=== PATIENT | female | born 1950 | race African-American/Black ===

== ENCOUNTER 2019-01-12 15:22 | Inpatient (IN) | payer MEDICARE, MEDICAID ==
[~2019-01-12] VITALS: Ht 154.9 cm; Wt 76.2 kg
[~2019-01-12 15:22] MED LIST: ALBU6.7H INH; ASPI-1159 MT; ATROV INH; GABA-531 MT; LIP40 MT; METF-414 MT
[2019-01-12 17:01] LABS: CHLORIDE 105 mEq/L (98-107)
[2019-01-12 17:06] LABS: BASOPHILS % 0.4 % (0.0-2.0); EOSINOPHILS % 1.4 % (0.0-5.0); HEMATOCRIT. 38.2 % (36.0-48.0); HEMOGLOBIN. 12.8 g/dL (12.0-16.0); LYMPHOCYTES % 20.6 % (20.0-50.0); MEAN CORPUSCULAR HEMOGLOBIN 30.4 pg (28.0-32.0); MEAN CORPUSCULAR VOLUME 90.5 fL (81.0-99.0); MEAN PLATELET VOLUME 8.9 fl (7.4-10.4); MONOCYTES % 5.4 % (2.0-8.0); NEUTROPHILS % 72.2 % (40.0-76.0); PLATELET 268 x1000/uL (130-400); RED BLOOD CELL COUNT 4.22 mill/uL (4.2-5.4); RED CELL DISTRIBUTION WIDTH 13.7 % (11.6-14.6)
[2019-01-12] MEDS ORDERED: IPRATROPIUM BROMIDE (0.02%) 0.5MG/2.5ML NEB HHN STA (17:08)
[2019-01-12] MEDS ORDERED: METHYLPREDNISOLONE SOD SUCC 125 MG/2 ML VIAL IV STA (17:08)
[2019-01-12] MEDS ORDERED: SODIUM CHLORIDE 0.9% 1,000 ML IV ONE (17:08)
[2019-01-12] MEDS ORDERED: ALBUTEROL (0.083%) 2.5MG/3ML NEB HHN STA (17:08)
[2019-01-12 17:11] LABS: INR 1.1; PARTIAL THROMBOPLASTIN TIME 28.6 sec (23.4-31.0); PROTHROMBIN TIME 10.7 sec (9.1-11.1)
[2019-01-12] MEDS ORDERED: ASPIRIN 325MG EC TABLET PO ONE (18:30)
[2019-01-12 23:56] VITALS: BP 132/59
[2019-01-13] VITALS: BP 132/59
[2019-01-13] MEDS ORDERED: DEXTROSE 50% WATER 50ML SYRINGE IV PRN (01:00)
[2019-01-13] MEDS ORDERED: ALBUTEROL (0.083%) 2.5MG/3ML NEB HHN SCH (01:00)
[2019-01-13] MEDS: METHYLPREDNISOLONE SOD SUCC 40 MG/ML VIAL IV SCH ×2 (03:05→09:36)
[2019-01-13 04:00] VITALS: BP 152/74
[2019-01-13] MEDS ORDERED: IPRATROPIUM BROMIDE (0.02%) 0.5MG/2.5ML NEB HHN SCH (04:00)
[2019-01-13] MEDS ORDERED: GUAIFENESIN 200MG/10ML SUGAR FREE UDC PO PRN (06:00)
[2019-01-13] MEDS: BLOOD SUGAR DIAGNOSTIC STRIP TEST SCH ×4 (06:52→21:01)
[2019-01-13] MEDS: INSULIN LISPRO 100 UNITS/ML SUBCUT SCH ×4 (06:59→21:21)
[2019-01-13] MEDS ORDERED: ACETAMINOPHEN 325MG TABLET PO PRN (07:45)
[2019-01-13] MEDS ORDERED: GUAIFENESIN-DM 200MG-20MG/10ML UDC PO PRN (07:45)
[2019-01-13] MEDS ORDERED: LORAZEPAM 0.5MG TABLET PO PRN (07:45)
[2019-01-13] MEDS ORDERED: HYDROCODONE/ACETAMINOPHEN 5/325MG TABLET PO PRN (07:45)
[2019-01-13] MEDS ORDERED: PNEUMOCOCCAL 23-VAL P-SAC VAC 0.5 ML IM ONE (08:00)
[2019-01-13] MEDS: IPRATROPIUM/ALBUTEROL 0.5-3(2.5)MG/3ML NEB HHN SCH ×4 (08:05→20:50)
[2019-01-13] MEDS ORDERED: ATORVASTATIN CALCIUM 40MG TABLET PO SCH (09:00)
[2019-01-13] MEDS ORDERED: NON FORMULARY PATIENT HOME MED PO SCH (09:00)
[2019-01-13] MEDS: ASPIRIN 81MG TABLET PO SCH (09:36)
[2019-01-13 09:43] VITALS: BP 155/71
[2019-01-13] MEDS ORDERED: INFLUENZA VIRUS VACCINE(AFLURIA) 0.5ML SYR IM ONE (10:00)
[2019-01-13] MEDS ORDERED: LEVOFLOXACIN 500MG TABLET PO NR ×2 (11:00)
[2019-01-13 12:00] VITALS: BP_SYST 131; BP_SYST 144; BP_DIAS 61; BP_DIAS 68
[2019-01-13 16:00] VITALS: BP 144/68
[2019-01-13] MEDS ORDERED: METFORMIN HCL 500MG TABLET PO SCH (17:40)
[2019-01-13 20:00] VITALS: BP 157/85
[2019-01-13] MEDS: ATORVASTATIN CALCIUM 40MG TABLET PO SCH (21:16)
[2019-01-13] MEDS: INSULIN GLARGINE UD 100 UNITS/ML SYR SUBCUT SCH (21:22)
[2019-01-14] VITALS: BP 166/64
[2019-01-14] MEDS: CLONIDINE 0.1MG TABLET PO PRN (01:22)
[2019-01-14 04:00] VITALS: BP 137/58
[2019-01-14] MEDS: BLOOD SUGAR DIAGNOSTIC STRIP TEST SCH ×4 (06:16→21:00)
[2019-01-14] MEDS: INSULIN LISPRO 100 UNITS/ML SUBCUT SCH ×4 (06:16→22:08)
[2019-01-14 07:04] LABS: BASOPHILS % 0.1 % (0.0-2.0); HEMATOCRIT. 36.1 % (36.0-48.0); HEMOGLOBIN. 12.2 g/dL (12.0-16.0); LYMPHOCYTES % 10.3 % (20.0-50.0); MEAN CORPUSCULAR HEMOGLOBIN 30.4 pg (28.0-32.0); MEAN CORPUSCULAR VOLUME 89.8 fL (81.0-99.0); MEAN PLATELET VOLUME 9.5 fl (7.4-10.4); MONOCYTES % 5.3 % (2.0-8.0); NEUTROPHILS % 84.3 % (40.0-76.0); PLATELET 258 x1000/uL (130-400); RED BLOOD CELL COUNT 4.02 mill/uL (4.2-5.4); RED CELL DISTRIBUTION WIDTH 13.7 % (11.6-14.6)
[2019-01-14 08:00] VITALS: BP 158/79
[2019-01-14] MEDS: ASPIRIN 81MG TABLET PO SCH (08:10)
[2019-01-14] MEDS: PREDNISONE 20MG TABLET PO SCH (08:10)
[2019-01-14] MEDS: IPRATROPIUM/ALBUTEROL 0.5-3(2.5)MG/3ML NEB HHN SCH ×5 (08:22→23:56)
[2019-01-14] MEDS: INSULIN GLARGINE UD 100 UNITS/ML SYR SUBCUT SCH ×2 (10:19→22:08)
[2019-01-14] MEDS ORDERED: LEVOFLOXACIN 250MG TABLET PO SCH ×2 (11:00)
[2019-01-14 16:00] VITALS: BP 114/63
[2019-01-14 19:35] LABS: CLARITY URINE CLEAR (CLEAR); COLOR URINE ORANGE (YELLOW); KETONES URINE NEGATIVE (NEGATIVE); LEUKOCYTE ESTERASE URINE NEGATIVE (NEGATIVE); NITRITE URINE NEGATIVE (NEGATIVE); OCCULT BLOOD URINE NEGATIVE (NEGATIVE); PH URINE 5.5 (4.5-8.0); PROTEIN URINE NEGATIVE (NEGATIVE); SPECIFIC GRAVITY URINE 1.014 (1.005-1.030); UROBILINOGEN URINE 0.2 E.U./dL (0.2-1.0)
[2019-01-14 20:00] VITALS: BP 156/70
[2019-01-14] MEDS: ATORVASTATIN CALCIUM 40MG TABLET PO SCH (21:51)
[2019-01-14 23:11] LABS: *AMPHETAMINES SCREEN URINE NEGATIVE (NEGATIVE); *BARBITURATES SCREEN URINE NEGATIVE (NEGATIVE); *BENZODIAZEPINES SCREEN URINE PRESUMTIVE POSITIVE (NEGATIVE)
[2019-01-14 23:12] LABS: *COCAINE SCREEN URINE NEGATIVE (NEGATIVE); CANNABINOID URINE SCREEN NEGATIVE (NEGATIVE); METHADONE URINE SCREEN NEGATIVE (NEGATIVE); OPIATES URINE SCREEN NEGATIVE (NEGATIVE); PHENCYCLIDINE URINE SCREEN NEGATIVE (NEGATIVE)
[2019-01-15] VITALS: BP 139/54
[2019-01-15 04:00] VITALS: BP 138/76
[2019-01-15] MEDS: IPRATROPIUM/ALBUTEROL 0.5-3(2.5)MG/3ML NEB HHN SCH ×3 (04:53→12:28)
[2019-01-15] MEDS: BLOOD SUGAR DIAGNOSTIC STRIP TEST SCH ×2 (06:33→11:38)
[2019-01-15] MEDS: INSULIN LISPRO 100 UNITS/ML SUBCUT SCH ×2 (06:54→12:46)
[2019-01-15 08:00] VITALS: BP 189/88
[2019-01-15 08:01] LABS: CHLORIDE 106 mEq/L (98-107)
[2019-01-15 08:06] LABS: PHOSPHORUS 2.5 mg/dL (2.5-4.9)
[2019-01-15] MEDS: ASPIRIN 81MG TABLET PO SCH (08:34)
[2019-01-15] MEDS: PREDNISONE 20MG TABLET PO SCH (08:34)
[2019-01-15] MEDS: CLONIDINE 0.1MG TABLET PO PRN (08:35)
[2019-01-15 10:03] LABS: BASOPHILS % 0.3 % (0.0-2.0); EOSINOPHILS % 1.5 % (0.0-5.0); HEMATOCRIT. 34.7 % (36.0-48.0); HEMOGLOBIN. 11.5 g/dL (12.0-16.0); LYMPHOCYTES % 32.4 % (20.0-50.0); MEAN CORPUSCULAR HEMOGLOBIN 29.9 pg (28.0-32.0); MEAN CORPUSCULAR VOLUME 90.3 fL (81.0-99.0); MONOCYTES % 6.2 % (2.0-8.0); NEUTROPHILS % 59.6 % (40.0-76.0); PLATELET 233 x1000/uL (130-400); RED BLOOD CELL COUNT 3.84 mill/uL (4.2-5.4); RED CELL DISTRIBUTION WIDTH 13.6 % (11.6-14.6)
[2019-01-15] MEDS: INSULIN GLARGINE UD 100 UNITS/ML SYR SUBCUT SCH (10:17)
[2019-01-15 12:00] VITALS: BP 138/57
[2019-01-15] MEDS ORDERED: MAGNESIUM OXIDE 400MG TABLET PO SCH (13:30)
== END 2019-01-15 18:55 | disposition home or self-care (01) | DRG 682 ==
LOC: ER 15:22 → 8WST 18:59 → ENRESERV 22:52
PROVIDERS: ADMIT Internal Medicine; ATTEND Internal Medicine
DX: N17.9 Acute kidney failure, unspecified (principal); J96.00 Acute respiratory failure, unspecified whether with hypoxia or hypercapnia; J44.1 Chronic obstructive pulmonary disease with (acute) exacerbation; I69.354 Hemiplegia and hemiparesis following cerebral infarction affecting left non-dominant side; F17.210 Nicotine dependence, cigarettes, uncomplicated; I25.10 Atherosclerotic heart disease of native coronary artery without angina pectoris; J06.9 Acute upper respiratory infection, unspecified; I10 Essential (primary) hypertension; E11.65 Type 2 diabetes mellitus with hyperglycemia; E78.5 Hyperlipidemia, unspecified; Z79.84 Long term (current) use of oral hypoglycemic drugs; Z82.49 Family history of ischemic heart disease and other diseases of the circulatory system; Z83.3 Family history of diabetes mellitus; Z95.5 Presence of coronary angioplasty implant and graft
CPT/HCPCS: 36415; 71045; 76770; 80048; 80061; 80305; 82962; 83036; 83735; 83880; 84100; 84484; 87804; 93005; 93970; 94640; 94644; 96374; 96375; 99285; J1815; J2920; J2930; J7030; J7512; J7611; J7620

== ENCOUNTER 2019-07-28 18:12 | Inpatient (IN) | payer MEDICARE, OTHER ==
[~2019-07-28] VITALS: Ht 154.9 cm; Wt 75.3 kg
[~2019-07-28 18:12] MED LIST changes: -ASPI-1159 MT; -LIP40 MT
[2019-07-28] MEDS ORDERED: PIPERACILLIN/TAZ 3.375G PREMIX 50 ML IV ONE (18:30)
[2019-07-28] MEDS ORDERED: SODIUM CHLORIDE 0.9% 1000ML BAG (SEPSIS BOLUS) IV ONE (18:30)
[2019-07-28] MEDS ORDERED: VANCOMYCIN 1 G PREMIX 200 ML IV ONE (18:30)
[2019-07-28 18:53] LABS: BASOPHILS % 0.5 % (0.0-2.0); EOSINOPHILS % 1.6 % (0.0-5.0); HEMATOCRIT. 36.6 % (36.0-48.0); HEMOGLOBIN. 12.2 g/dL (12.0-16.0); LYMPHOCYTES % 53.2 % (20.0-50.0); MEAN CORPUSCULAR HEMOGLOBIN 30.3 pg (28.0-32.0); MEAN CORPUSCULAR VOLUME 90.6 fL (81.0-99.0); MEAN PLATELET VOLUME 8.2 fl (7.4-10.4); MONOCYTES % 7.7 % (2.0-8.0); PLATELET 283 x1000/uL (130-400); RED BLOOD CELL COUNT 4.04 mill/uL (4.2-5.4); RED CELL DISTRIBUTION WIDTH 14.6 % (11.6-14.6)
[2019-07-28 19:01] LABS: CHLORIDE 105 mEq/L (98-107)
[2019-07-28 19:03] LABS: PARTIAL THROMBOPLASTIN TIME 24.3 sec (23.4-31.0); PROTHROMBIN TIME 10.6 sec (9.6-11.0)
[2019-07-28 19:05] LABS: ETHANOL BLOOD < 10 mg/dL
[2019-07-28] MEDS ORDERED: POTASSIUM CHLORIDE 20MEQ TABLET SR PO ONE (20:00)
[2019-07-28] MEDS ORDERED: ASPIRIN 325MG EC TABLET PO ONE (20:00)
[2019-07-28 20:10] LABS: CLARITY URINE CLEAR (CLEAR); COLOR URINE YELLOW (YELLOW); KETONES URINE NEGATIVE (NEGATIVE); LEUKOCYTE ESTERASE URINE 2+ (NEGATIVE); NITRITE URINE NEGATIVE (NEGATIVE); OCCULT BLOOD URINE NEGATIVE (NEGATIVE); PH URINE 6.5 (4.5-8.0); PROTEIN URINE NEGATIVE (NEGATIVE); SPECIFIC GRAVITY URINE 1.007 (1.005-1.030); UROBILINOGEN URINE 0.2 E.U./dL (0.2-1.0)
[2019-07-28 20:28] LABS: *AMPHETAMINES SCREEN URINE NEGATIVE (NEGATIVE); CANNABINOID URINE SCREEN PRESUMTIVE POSITIVE (NEGATIVE)
[2019-07-28 20:29] LABS: *BARBITURATES SCREEN URINE NEGATIVE (NEGATIVE); *BENZODIAZEPINES SCREEN URINE NEGATIVE (NEGATIVE); *COCAINE SCREEN URINE NEGATIVE (NEGATIVE); METHADONE URINE SCREEN NEGATIVE (NEGATIVE); OPIATES URINE SCREEN NEGATIVE (NEGATIVE); PHENCYCLIDINE URINE SCREEN NEGATIVE (NEGATIVE)
[2019-07-29] VITALS (8 sets, daily range): BP systolic 144–155; BP diastolic 66–98
[2019-07-29] MEDS ORDERED: HYDRALAZINE HCL 100MG TABLET PO SCH (14:00)
[2019-07-29] MEDS: LOSARTAN POTASSIUM 50 MG TABLET PO SCH (15:21)
[2019-07-29] MEDS: AMLODIPINE 10MG TABLET PO SCH (15:21)
[2019-07-29] MEDS ORDERED: DEXTROSE 50% WATER 50ML SYRINGE IV PRN (16:45)
[2019-07-29] MEDS ORDERED: GUAIFENESIN 200MG/10ML SUGAR FREE UDC PO PRN (16:45)
[2019-07-29] MEDS ORDERED: ACETAMINOPHEN 325MG TABLET PO PRN (16:45)
[2019-07-29] MEDS ORDERED: ONDANSETRON HCL 4MG/2ML INJ IV PRN (16:45)
[2019-07-29] MEDS ORDERED: MAGNESIUM/ALUMINUM HYDROXIDE/SIMETHICONE 30ML UDC PO PRN (16:45)
[2019-07-29] MEDS ORDERED: POTASSIUM CHLORIDE 20MEQ TABLET SR PO NR (17:00)
[2019-07-29] MEDS: INSULIN LISPRO 100 UNITS/ML SUBCUT SCH ×2 (17:20→21:00)
[2019-07-29] MEDS: METFORMIN HCL 500MG TABLET PO SCH (17:34)
[2019-07-29] MEDS: BLOOD SUGAR DIAGNOSTIC STRIP TEST SCH ×2 (17:34→21:11)
[2019-07-29] MEDS: ENOXAPARIN 40MG/0.4ML SYR SUBCUT SCH (17:35)
[2019-07-29] MEDS: GABAPENTIN 300MG CAPSULE PO SCH (21:10)
[2019-07-29] MEDS: SODIUM CHLORIDE 0.9% INJ 3ML FLUSH IVF SCH (21:11)
[2019-07-30] VITALS (13 sets, daily range): BP systolic 103–165; BP diastolic 50–84
[2019-07-30 06:21] LABS: BASOPHILS % 0.7 % (0.0-2.0); EOSINOPHILS % 2.2 % (0.0-5.0); HEMOGLOBIN. 11.7 g/dL (12.0-16.0); LYMPHOCYTES % 39.4 % (20.0-50.0); MEAN CORPUSCULAR HEMOGLOBIN 30.5 pg (28.0-32.0); MEAN CORPUSCULAR VOLUME 91.5 fL (81.0-99.0); MEAN PLATELET VOLUME 8.1 fl (7.4-10.4); MONOCYTES % 8.7 % (2.0-8.0); PLATELET 237 x1000/uL (130-400); RED BLOOD CELL COUNT 3.83 mill/uL (4.2-5.4); RED CELL DISTRIBUTION WIDTH 14.5 % (11.6-14.6)
[2019-07-30] MEDS: SODIUM CHLORIDE 0.9% INJ 3ML FLUSH IVF SCH ×3 (06:38→21:45)
[2019-07-30] MEDS: BLOOD SUGAR DIAGNOSTIC STRIP TEST SCH ×4 (06:50→21:45)
[2019-07-30 06:55] LABS: CHLORIDE 110 mEq/L (98-107)
[2019-07-30 07:16] LABS: PHOSPHORUS 3.3 mg/dL (2.5-4.9)
[2019-07-30] MEDS: INSULIN LISPRO 100 UNITS/ML SUBCUT SCH ×4 (07:20→21:00)
[2019-07-30] MEDS: LOSARTAN POTASSIUM 50 MG TABLET PO SCH (08:09)
[2019-07-30] MEDS: METFORMIN HCL 500MG TABLET PO SCH ×2 (08:10→17:04)
[2019-07-30] MEDS: AMLODIPINE 10MG TABLET PO SCH (08:10)
[2019-07-30] MEDS: ASPIRIN 81MG EC TABLET PO SCH (08:10)
[2019-07-30] MEDS: ENOXAPARIN 40MG/0.4ML SYR SUBCUT SCH (17:05)
[2019-07-30] MEDS: GABAPENTIN 300MG CAPSULE PO SCH (21:44)
[2019-07-31] VITALS (9 sets, daily range): BP systolic 102–168; BP diastolic 54–110
[2019-07-31] MEDS ORDERED: CLONIDINE 0.1MG TABLET PO PRN (00:15)
[2019-07-31] MEDS: SODIUM CHLORIDE 0.9% INJ 3ML FLUSH IVF SCH ×2 (06:33→14:00)
[2019-07-31] MEDS: BLOOD SUGAR DIAGNOSTIC STRIP TEST SCH ×3 (06:46→16:50)
[2019-07-31] MEDS: INSULIN LISPRO 100 UNITS/ML SUBCUT SCH ×3 (07:20→17:20)
[2019-07-31] MEDS: LOSARTAN POTASSIUM 50 MG TABLET PO SCH (08:51)
[2019-07-31] MEDS: METFORMIN HCL 500MG TABLET PO SCH ×2 (08:51→18:41)
[2019-07-31] MEDS: ASPIRIN 81MG EC TABLET PO SCH (08:52)
[2019-07-31] MEDS: AMLODIPINE 10MG TABLET PO SCH (08:52)
[2019-07-31] MEDS: ENOXAPARIN 40MG/0.4ML SYR SUBCUT SCH (18:46)
== END 2019-07-31 18:50 | disposition home or self-care (01) | DRG 74 ==
LOC: ER 18:12 → 3WST 21:03 → EDBEDREQ 21:07 → ENRESERV 07-29 10:03 → 3WST 07-29 11:28
PROVIDERS: ADMIT Internal Medicine; ATTEND Internal Medicine
DX: G90.8 Other disorders of autonomic nervous system (principal); I69.354 Hemiplegia and hemiparesis following cerebral infarction affecting left non-dominant side; E11.40 Type 2 diabetes mellitus with diabetic neuropathy, unspecified; I50.9 Heart failure, unspecified; I11.0 Hypertensive heart disease with heart failure; J44.9 Chronic obstructive pulmonary disease, unspecified; Z87.891 Personal history of nicotine dependence; Z79.84 Long term (current) use of oral hypoglycemic drugs; Z79.899 Other long term (current) drug therapy
CPT/HCPCS: 36415; 71045; 80048; 80305; 80320; 81003; 82962; 83605; 83735; 83880; 84100; 84145; 84484; 93005; 93970; 97162; 99285; J1650; J2543; J3370; J7030; A4315; G0480

== ENCOUNTER 2019-10-14 14:19 | Emergency (ER) | payer MEDICARE, OTHER ==
[~2019-10-14] VITALS: Ht 152.4 cm; Wt 60.0 kg
[2019-10-14 21:33] LABS: BASOPHILS % 0.9 % (0.0-2.0); EOSINOPHILS % 2.1 % (0.0-5.0); HEMATOCRIT. 38.8 % (36.0-48.0); MEAN CORPUSCULAR HEMOGLOBIN 30.3 pg (28.0-32.0); MEAN CORPUSCULAR VOLUME 90.5 fL (81.0-99.0); MEAN PLATELET VOLUME 8.3 fl (7.4-10.4); MONOCYTES % 6.8 % (2.0-8.0); NEUTROPHILS % 58.2 % (40.0-76.0); PLATELET 281 x1000/uL (130-400); RED BLOOD CELL COUNT 4.29 mill/uL (4.2-5.4); RED CELL DISTRIBUTION WIDTH 13.5 % (11.6-14.6)
[2019-10-14] MEDS ORDERED: MAGNESIUM 2 G PREMIX 50 ML IV STA (21:47)
[2019-10-14] MEDS ORDERED: PREDNISONE 20MG TABLET PO STA (21:47)
[2019-10-14] MEDS ORDERED: ALBUTEROL (0.083%) 2.5MG/3ML NEB HHN STA (21:47)
[2019-10-14] MEDS ORDERED: ALBUTEROL (0.5%) 2.5MG/0.5ML NEB HHN ONE (21:59)
[2019-10-14 22:38] LABS: CHLORIDE 111 mEq/L (98-107)
[2019-10-14 23:39] VITALS: BP 145/57
== END 2019-10-14 23:41 | disposition home or self-care (01) ==
LOC: ER 14:19 → EDBD 14:19 → ER 23:41
DX: J44.1 Chronic obstructive pulmonary disease with (acute) exacerbation (principal); R07.89 Other chest pain; E11.9 Type 2 diabetes mellitus without complications; I10 Essential (primary) hypertension; Z86.73 Personal history of transient ischemic attack (TIA), and cerebral infarction without residual deficits; Z79.84 Long term (current) use of oral hypoglycemic drugs
CPT/HCPCS: 36415; 71045; 80053; 83880; 84484; 85025; 93005; 94640; 96365; 96366; 99284; J3475; J7512; J7611; Z7610

== ENCOUNTER 2020-05-14 13:11 | Inpatient (IN) | payer MEDICARE, OTHER ==
[~2020-05-14] VITALS: Ht 165.1 cm; Wt 71.2 kg
[~2020-05-14 13:11] MED LIST changes: -ALBU6.7H INH; +ALBU6.7H11 INH
[2020-05-14] MEDS ORDERED: SODIUM CHLORIDE 0.9% 500 ML IV ONE (13:34)
[2020-05-14] MEDS ORDERED: ACETAMINOPHEN 325MG TABLET PO ONE (14:00)
[2020-05-14 14:07] LABS: BASOPHILS % 0.9 % (0.0-2.0); HEMATOCRIT. 36.3 % (36.0-48.0); HEMOGLOBIN. 12.5 g/dL (12.0-16.0); MEAN CORPUSCULAR HEMOGLOBIN 31.4 pg (28.0-32.0); MEAN CORPUSCULAR VOLUME 91.1 fL (81.0-99.0); MONOCYTES % 7.3 % (2.0-8.0); NEUTROPHILS % 53.8 % (40.0-76.0); PLATELET 241 x1000/uL (130-400); RED BLOOD CELL COUNT 3.98 mill/uL (4.2-5.4); RED CELL DISTRIBUTION WIDTH 14.2 % (11.6-14.6)
[2020-05-14 14:10] LABS: CHLORIDE 110 mEq/L (98-107)
[2020-05-14] MEDS ORDERED: ZOLPIDEM TARTRATE 5MG TABLET PO PRN (21:45)
[2020-05-14] MEDS ORDERED: ACETAMINOPHEN 325MG TABLET PO PRN ×2 (21:45)
[2020-05-14] MEDS ORDERED: DEXTROSE 50% WATER 50ML SYRINGE IV PRN (21:45)
[2020-05-14] MEDS ORDERED: DIPHENHYDRAMINE 50MG/ML VIAL IV PRN (21:45)
[2020-05-14] MEDS ORDERED: MAGNESIUM/ALUMINUM HYDROXIDE/SIMETHICONE 30ML UDC PO PRN (21:45)
[2020-05-14] MEDS ORDERED: ONDANSETRON HCL 4MG/2ML INJ IV PRN (21:45)
[2020-05-14] MEDS: SODIUM CHLORIDE 0.9% INJ 3ML FLUSH IVF SCH (22:33)
[2020-05-14 22:45] LABS: CLARITY URINE CLEAR (CLEAR); COLOR URINE YELLOW (YELLOW); KETONES URINE NEGATIVE (NEGATIVE); LEUKOCYTE ESTERASE URINE 1+ (NEGATIVE); NITRITE URINE NEGATIVE (NEGATIVE); OCCULT BLOOD URINE NEGATIVE (NEGATIVE); PROTEIN URINE NEGATIVE (NEGATIVE); SPECIFIC GRAVITY URINE 1.013 (1.005-1.030)
[2020-05-14 23:40] VITALS: BP 148/58
[2020-05-15] VITALS (7 sets, daily range): BP systolic 140–170; BP diastolic 49–74
[2020-05-15] MEDS ORDERED: METF-414 MT (00:16)
[2020-05-15] MEDS ORDERED: CLON0.1T PO (00:17)
[2020-05-15] MEDS: BLOOD SUGAR DIAGNOSTIC STRIP TEST SCH ×4 (06:02→21:00)
[2020-05-15] MEDS: INSULIN LISPRO 100 UNITS/ML SUBCUT SCH ×4 (06:19→21:00)
[2020-05-15] MEDS: SODIUM CHLORIDE 0.9% INJ 3ML FLUSH IVF SCH ×3 (06:26→22:36)
[2020-05-15] MEDS: ENOXAPARIN 40MG/0.4ML SYR SUBCUT SCH (08:21)
[2020-05-15] MEDS: LOSARTAN POTASSIUM 25 MG TABLET PO SCH ×2 (12:37→20:52)
[2020-05-15] MEDS: ASPIRIN 81MG EC TABLET PO SCH (12:37)
[2020-05-15] MEDS: FAMOTIDINE 20MG TABLET PO SCH (20:51)
[2020-05-15] MEDS: AMLODIPINE 5MG TABLET PO SCH (20:52)
[2020-05-16] VITALS: BP_SYST 180; BP_SYST 196; BP_SYST 204; BP_DIAS 72; BP_DIAS 78; BP_DIAS 81
[2020-05-16 04:00] VITALS: BP 185/66
[2020-05-16] MEDS: SODIUM CHLORIDE 0.9% INJ 3ML FLUSH IVF SCH ×3 (05:52→21:21)
[2020-05-16] MEDS: BLOOD SUGAR DIAGNOSTIC STRIP TEST SCH ×4 (06:24→21:21)
[2020-05-16] MEDS: INSULIN LISPRO 100 UNITS/ML SUBCUT SCH ×4 (06:29→21:00)
[2020-05-16 07:16] LABS: BASOPHILS % 0.8 % (0.0-2.0); EOSINOPHILS % 1.6 % (0.0-5.0); HEMOGLOBIN. 14.2 g/dL (12.0-16.0); LYMPHOCYTES % 38.2 % (20.0-50.0); MEAN CORPUSCULAR HEMOGLOBIN 30.9 pg (28.0-32.0); MEAN CORPUSCULAR VOLUME 89.6 fL (81.0-99.0); MONOCYTES % 7.9 % (2.0-8.0); NEUTROPHILS % 51.5 % (40.0-76.0); PLATELET 251 x1000/uL (130-400); RED BLOOD CELL COUNT 4.58 mill/uL (4.2-5.4); RED CELL DISTRIBUTION WIDTH 14.2 % (11.6-14.6)
[2020-05-16 07:23] LABS: CHLORIDE 105 mEq/L (98-107)
[2020-05-16 07:34] LABS: TOTAL IRON BINDING CAPACITY 311 ug/dL (250-450)
[2020-05-16 07:35] LABS: LDL CHOLESTEROL 143 mg/dL (5-100)
[2020-05-16 07:37] LABS: HDL CHOLESTEROL 56 mg/dL (40-59)
[2020-05-16 07:41] LABS: VITAMIN B12 SERUM 652 pg/mL (211-911)
[2020-05-16] MEDS: ASPIRIN 81MG EC TABLET PO SCH (09:08)
[2020-05-16] MEDS: ENOXAPARIN 40MG/0.4ML SYR SUBCUT SCH (09:08)
[2020-05-16] MEDS: AMLODIPINE 5MG TABLET PO SCH ×2 (09:09→21:20)
[2020-05-16] MEDS: LOSARTAN POTASSIUM 25 MG TABLET PO SCH (09:09)
[2020-05-16] MEDS: METFORMIN HCL 500MG TABLET PO SCH (17:12)
[2020-05-16 20:00] VITALS: BP 201/97
[2020-05-16] MEDS ORDERED: GABAPENTIN 300MG CAPSULE PO SCH (21:00)
[2020-05-16] MEDS: FAMOTIDINE 20MG TABLET PO SCH (21:00)
[2020-05-16] MEDS ORDERED: ATORVASTATIN CALCIUM 40MG TABLET PO SCH (21:00)
[2020-05-16] MEDS: LOSARTAN POTASSIUM 50 MG TABLET PO SCH (21:20)
[2020-05-16] MEDS: CLONIDINE 0.1MG TABLET PO SCH (22:02)
[2020-05-16 22:03] VITALS: BP 155/54
[2020-05-17] VITALS (8 sets, daily range): BP systolic 105–194; BP diastolic 46–89
[2020-05-17] MEDS: CLONIDINE 0.1MG TABLET PO SCH ×2 (06:00→13:45)
[2020-05-17] MEDS: SODIUM CHLORIDE 0.9% INJ 3ML FLUSH IVF SCH (06:26)
[2020-05-17] MEDS: BLOOD SUGAR DIAGNOSTIC STRIP TEST SCH ×2 (06:26→12:09)
[2020-05-17] MEDS: METFORMIN HCL 500MG TABLET PO SCH (06:42)
[2020-05-17] MEDS: INSULIN LISPRO 100 UNITS/ML SUBCUT SCH ×2 (06:45→12:19)
[2020-05-17] MEDS: ASPIRIN 81MG EC TABLET PO SCH (09:31)
[2020-05-17] MEDS: ENOXAPARIN 40MG/0.4ML SYR SUBCUT SCH (09:31)
[2020-05-17] MEDS: AMLODIPINE 5MG TABLET PO SCH (09:31)
[2020-05-17] MEDS: LOSARTAN POTASSIUM 50 MG TABLET PO SCH (09:31)
== END 2020-05-17 17:35 | disposition home health service (06) | DRG 74 ==
LOC: ER 13:47 → 8WST 15:21 → EDBEDREQ 15:24 → ENRESERV 22:02
PROVIDERS: ADMIT Internal Medicine; ATTEND Internal Medicine
DX: G90.8 Other disorders of autonomic nervous system (principal); I69.354 Hemiplegia and hemiparesis following cerebral infarction affecting left non-dominant side; R55 Syncope and collapse; I95.9 Hypotension, unspecified; M19.90 Unspecified osteoarthritis, unspecified site; R00.1 Bradycardia, unspecified; I10 Essential (primary) hypertension; J44.9 Chronic obstructive pulmonary disease, unspecified; E11.40 Type 2 diabetes mellitus with diabetic neuropathy, unspecified; R03.0 Elevated blood-pressure reading, without diagnosis of hypertension; Z79.84 Long term (current) use of oral hypoglycemic drugs; Z79.899 Other long term (current) drug therapy
CPT/HCPCS: 36415; 71045; 73521; 73562; 78582; 80048; 80053; 80061; 81003; 82607; 82962; 83540; 83550; 83735; 83880; 84443; 84484; 85025; 93005; 93306; 93880; 93970; 99285; A9558; J1650; J1815; J7040

== ENCOUNTER 2020-09-27 15:31 | Emergency (ER) | payer MEDICARE, OTHER ==
[~2020-09-27] VITALS: Ht 167.6 cm; Wt 59.0 kg
[~2020-09-27 15:31] MED LIST changes: +CLON0.1T PO
[2020-09-27 17:26] LABS: BASOPHILS % 0.8 % (0.0-2.0); EOSINOPHILS % 0.4 % (0.0-5.0); HEMATOCRIT. 41.2 % (36.0-48.0); HEMOGLOBIN. 13.9 g/dL (12.0-16.0); LYMPHOCYTES % 16.8 % (20.0-50.0); MEAN CORPUSCULAR VOLUME 91.7 fL (81.0-99.0); MONOCYTES % 3.8 % (2.0-8.0); NEUTROPHILS % 78.2 % (40.0-76.0); PLATELET 276 x1000/uL (130-400); RED BLOOD CELL COUNT 4.49 mill/uL (4.2-5.4); RED CELL DISTRIBUTION WIDTH 14.8 % (11.6-14.6)
[2020-09-27 17:34] LABS: CHLORIDE 107 mEq/L (98-107)
[2020-09-27] MEDS ORDERED: CEFTRIAXONE 1 G PREMIX 50 ML IV ONE (17:45)
[2020-09-27] MEDS ORDERED: AZITHROMYCIN 500 MG in DEXT 5% WATER 250 ML IV ONE (17:45)
[2020-09-27 23:49] VITALS: BP 126/54
== END 2020-09-27 23:59 | disposition short-term general hospital (02) ==
LOC: ER 15:42 → CANBEDREQ 09-28 05:54
DX: R55 Syncope and collapse (principal); J18.9 Pneumonia, unspecified organism; R51.9 Headache, unspecified; J44.9 Chronic obstructive pulmonary disease, unspecified; E11.9 Type 2 diabetes mellitus without complications; I10 Essential (primary) hypertension; Z86.73 Personal history of transient ischemic attack (TIA), and cerebral infarction without residual deficits; Z98.891 History of uterine scar from previous surgery; Z79.899 Other long term (current) drug therapy
CPT/HCPCS: 36415; 70450; 71045; 72125; 80053; 84484; 85025; 87040; 93005; 96365; 96375; 99285; J0456; J0696; J7060

== ENCOUNTER 2024-03-28 13:34 | Inpatient (IN) | payer MEDICARE, MEDICAID ==
[~2024-03-28] VITALS: Ht 154.9 cm; Wt 81.3 kg
[~2024-03-28 13:34] MED LIST changes: -ALBU6.7H11 INH; +ALBU6.7H15 INH; -GABA-531 MT; +GABA-532 MT
[2024-03-28] MEDS ORDERED: CLONIDINE 0.2MG TABLET PO ONE (14:30)
[2024-03-28] MEDS ORDERED: NITROGLYCERIN 0.4MG TABLET SL SL PRN (14:30)
[2024-03-28] MEDS: ASPIRIN 81MG TABLET PO ONE (14:56)
[2024-03-28] MEDS: CLONIDINE 0.1MG TABLET PO NR (14:56)
[2024-03-28] MEDS: SODIUM CHLORIDE 0.9% 1,000 ML IV ONE (14:57)
[2024-03-28 15:13] LABS: BASOPHILS % 0.9 % (0.0-2.0); EOSINOPHILS % 0.9 % (0.0-5.0); HEMATOCRIT. 37.7 % (36.0-48.0); HEMOGLOBIN. 12.7 g/dL (12.0-16.0); LYMPHOCYTES % 17.8 % (20.0-50.0); MEAN CORPUSCULAR HEMOGLOBIN 30.7 pg (28.0-32.0); MEAN CORPUSCULAR HGB CONC 33.8 g/dL (31.0-37.0); MEAN CORPUSCULAR VOLUME 90.7 fL (81.0-99.0); MEAN PLATELET VOLUME 9.2 fl (7.4-10.4); MONOCYTES % 6.1 % (2.0-8.0); NEUTROPHILS % 74.3 % (40.0-76.0); PLATELET 230 x1000/uL (130-400); RED BLOOD CELL COUNT 4.15 mill/uL (4.2-5.4); RED CELL DISTRIBUTION WIDTH 13.8 % (11.6-14.6); WHITE BLOOD COUNT 7.8 x1000/uL (4.5-11.0)
[2024-03-28 15:17] LABS: CHLORIDE 105 mEq/L (98-107); POTASSIUM 3.6 mEq/L (3.5-5.1); SODIUM 140 mEq/L (136-145)
[2024-03-28 15:18] LABS: CALCIUM 9.7 mg/dL (8.7-10.4); CARBON DIOXIDE 32 mEq/L (21-32)
[2024-03-28 15:23] LABS: D-DIMER 1.67 mg/L FEU (<0.50); GLUCOSE 184 mg/dL (70-105); PARTIAL THROMBOPLASTIN TIME 25.9 sec (23.4-31.0); PROTHROMBIN TIME 10.9 sec (9.6-11.0); UREA NITROGEN BLOOD 17 mg/dL (9-23)
[2024-03-28 15:37] LABS: TROPONIN I HIGH SENSITIVITY 316 ng/L (3.0-34)
[2024-03-28] MEDS ORDERED: ENOXAPARIN 80MG/0.8ML SYR SUBCUT ONE (16:00)
[2024-03-28 17:38] LABS: TROPONIN I HIGH SENSITIVITY 378 ng/L (3.0-34)
[2024-03-28] MEDS: ENOXAPARIN 80MG/0.8ML SYR SUBCUT NR (18:25)
[2024-03-28] MEDS: SODIUM CHLORIDE 0.9% 1000ML BAG (SEPSIS BOLUS) IV ONE (19:20)
[2024-03-28] MEDS: CEFTRIAXONE 1GM/50ML 50 ML IV ONE (19:21)
[2024-03-28 20:15] VITALS: BP 167/68; PULSE 50; RESP 18; TEMP 98
[2024-03-28 20:18] VITALS: BP 137/66; PULSE 69; RESP 9; TEMP 98
[2024-03-28 22:00] VITALS: BP 137/65; PULSE 49; RESP 18
[2024-03-28] MEDS ORDERED: ZOLPIDEM TARTRATE 5MG TABLET PO PRN (23:15)
[2024-03-28] MEDS: FUROSEMIDE 40MG/4ML VIAL IVP SCH (23:56)
[2024-03-29] VITALS (12 sets, daily range): BP systolic 119–176; BP diastolic 50–112; PULSE 50–71; RESP 12–23; TEMP 97.3–99.4
[2024-03-29] MEDS: CLONIDINE 0.1MG TABLET PO PRN (05:47)
[2024-03-29 05:55] LABS: BASOPHILS % 0.7 % (0.0-2.0); EOSINOPHILS % 2.3 % (0.0-5.0); HEMOGLOBIN. 12.4 g/dL (12.0-16.0); LYMPHOCYTES % 33.5 % (20.0-50.0); MEAN CORPUSCULAR HEMOGLOBIN 30.7 pg (28.0-32.0); MEAN CORPUSCULAR HGB CONC 34.4 g/dL (31.0-37.0); MEAN CORPUSCULAR VOLUME 89.3 fL (81.0-99.0); MEAN PLATELET VOLUME 9.8 fl (7.4-10.4); MONOCYTES % 7.2 % (2.0-8.0); NEUTROPHILS % 56.3 % (40.0-76.0); PLATELET 210 x1000/uL (130-400); RED BLOOD CELL COUNT 4.03 mill/uL (4.2-5.4); RED CELL DISTRIBUTION WIDTH 13.6 % (11.6-14.6); WHITE BLOOD COUNT 7.3 x1000/uL (4.5-11.0)
[2024-03-29 06:19] LABS: CHLORIDE 106 mEq/L (98-107); POTASSIUM 3.3 mEq/L (3.5-5.1); SODIUM 140 mEq/L (136-145)
[2024-03-29 06:20] LABS: CALCIUM 9.5 mg/dL (8.7-10.4); CARBON DIOXIDE 29 mEq/L (21-32)
[2024-03-29 06:25] LABS: CREATINE KINASE MB FRACTION 2.2 ng/mL (0.5-3.6); GLUCOSE 162 mg/dL (70-105); TRIGLYCERIDE 118 mg/dL (0-150); UREA NITROGEN BLOOD 19 mg/dL (9-23)
[2024-03-29 06:26] LABS: LDL CHOLESTEROL 117 mg/dL (5-100)
[2024-03-29 06:27] LABS: CHOLESTEROL 168 mg/dL (<200); CREATINE KINASE 47 IU/L (34-145); HDL CHOLESTEROL 44 mg/dL (>65)
[2024-03-29] MEDS: BUDESONIDE 0.5MG/2ML NEB HHN SCH (08:18)
[2024-03-29] MEDS: ENOXAPARIN 40MG/0.4ML SYR SUBCUT SCH (08:25)
[2024-03-29 08:44] LABS: TROPONIN I HIGH SENSITIVITY 536 ng/L (3.0-34)
[2024-03-29] MEDS ORDERED: CARVEDILOL 6.25 MG TABLET PO SCH (11:00)
[2024-03-29] MEDS: ASPIRIN 81MG TABLET PO SCH (11:36)
[2024-03-29] MEDS: AMLODIPINE 5MG TABLET PO SCH (11:37)
[2024-03-29] MEDS: ISOSORBIDE MONONITRATE 30MG TABLET SR 24HR PO SCH (11:37)
[2024-03-29] MEDS: HYDRALAZINE HCL 25MG TABLET PO SCH (13:33)
[2024-03-29] MEDS: DOCUSATE SODIUM 100MG CAPSULE PO PRN (15:50)
[2024-03-29] MEDS: FAMOTIDINE 20MG/2ML VIAL IV NR (17:26)
[2024-03-29] MEDS: MONTELUKAST SODIUM 10MG TABLET PO SCH (17:26)
[2024-03-29 18:07] LABS: CREATINE KINASE MB FRACTION 1.1 ng/mL (0.5-3.6)
[2024-03-29] MEDS: ATORVASTATIN CALCIUM 40MG TABLET PO SCH (21:33)
[2024-03-29] MEDS ORDERED: DEXTROSE 50% WATER 50ML SYRINGE IV PRN (23:15)
[2024-03-30] VITALS (15 sets, daily range): BP systolic 126–187; BP diastolic 43–69; PULSE 53–94; RESP 15–25; TEMP 96.7–98.9; O2SAT 98–99
[2024-03-30] MEDS: BLOOD SUGAR DIAGNOSTIC STRIP TEST SCH (07:30)
[2024-03-30] MEDS: INSULIN LISPRO 100 UNITS/ML SUBCUT SCH (07:30)
[2024-03-30] MEDS ORDERED: INSULIN LISPRO 100 UNITS/ML SUBCUT SCH (08:00)
[2024-03-30] MEDS: IPRATROPIUM/ALBUTEROL 0.5-3(2.5)MG/3ML NEB HHN SCH (08:18)
[2024-03-30 08:54] LABS: *AMPHETAMINES SCREEN URINE NEGATIVE (NEGATIVE)
[2024-03-30 08:57] LABS: *BARBITURATES SCREEN URINE NEGATIVE (NEGATIVE); *BENZODIAZEPINES SCREEN URINE NEGATIVE (NEGATIVE); *COCAINE SCREEN URINE NEGATIVE (NEGATIVE); CANNABINOID URINE SCREEN NEGATIVE (NEGATIVE); METHADONE URINE SCREEN NEGATIVE (NEGATIVE); OPIATES URINE SCREEN NEGATIVE (NEGATIVE); PHENCYCLIDINE URINE SCREEN NEGATIVE (NEGATIVE)
[2024-03-30 08:58] LABS: ECSTASY MDMA SCREEN URINE NEGATIVE (NEGATIVE)
[2024-03-30] MEDS: LIDOCAINE 5% PATCH TOP SCH (18:09)
[2024-03-31] VITALS (15 sets, daily range): BP systolic 107–169; BP diastolic 49–98; PULSE 63–95; RESP 12–24; TEMP 97.1–98.1; O2SAT 97–99
[2024-03-31] MEDS: ACETAMINOPHEN 325MG TABLET PO PRN (13:19)
[2024-04-01] VITALS (16 sets, daily range): BP systolic 115–163; BP diastolic 38–98; PULSE 64–106; RESP 13–25; TEMP 97.2–98.3; O2SAT 97–99
[2024-04-01] MEDS ORDERED: AMLO5TAB88 PO (12:51)
[2024-04-01] MEDS ORDERED: LIP40 PO (12:51)
[2024-04-01] MEDS ORDERED: APIX5TAB MT (12:51)
[2024-04-01] MEDS ORDERED: ASPI-1497 MT (12:54)
[2024-04-02] VITALS (15 sets, daily range): BP systolic 109–172; BP diastolic 43–71; PULSE 55–99; RESP 11–24; TEMP 97–97.9; O2SAT 95–100
[2024-04-02 10:58] LABS: POTASSIUM 4.1 mEq/L (3.5-5.1)
[2024-04-02 10:59] LABS: CALCIUM 9.8 mg/dL (8.7-10.4)
[2024-04-02] MEDS ORDERED: LIDOCAINE HCL 1% 20ML VIAL (Pyxis) INJ ONE (11:03)
[2024-04-02 11:04] LABS: CREATININE 1.1 mg/dL (0.6-1.0)
[2024-04-02] MEDS ORDERED: HEPARIN 1000 UNITS/ML 10ML ONE (11:04)
[2024-04-02] MEDS ORDERED: IODIXANOL 320MG/ML 100 ML BOTTLE IV ONE (11:04)
[2024-04-03] VITALS (46 sets, daily range): BP systolic 86–161; BP diastolic 43–66; PULSE 62–105; RESP 12–28; TEMP 97.3–98.7
[2024-04-03] MEDS: SODIUM CHLORIDE 0.45% 500 ML IV ONE (01:30)
[2024-04-03] MEDS ORDERED: IODIXANOL 320MG/ML 100 ML BOTTLE IV ONE ×2 (07:45→10:11)
[2024-04-03] MEDS ORDERED: LIDOCAINE HCL 1% 20ML VIAL (Pyxis) INJ ONE ×2 (07:45→10:39)
[2024-04-03] MEDS ORDERED: HEPARIN 1000 UNITS/ML 10ML ONE (07:45)
[2024-04-03] MEDS ORDERED: VERAPAMIL HCL 2.5 MG/1 ML 2ML VIAL IV ONE (08:17)
[2024-04-03] MEDS ORDERED: MIDAZOLAM HCL 2 MG/2 ML VIAL ONE ×2 (08:44→10:09)
[2024-04-03] MEDS ORDERED: DIPHENHYDRAMINE 50MG/ML VIAL ONE (08:44)
[2024-04-03] MEDS ORDERED: FENTANYL CITRATE/PF 50MCG/ML 2ML VIAL ONE (08:45)
[2024-04-03] MEDS ORDERED: TETRACAINE/BENZOCAINE/BUTAMBEN 20 GM SPRAY MM ONE (09:37)
[2024-04-03] MEDS ORDERED: HYDRALAZINE 20MG/ML VIAL ONE (10:07)
[2024-04-03] MEDS ORDERED: LABETALOL 5MG/ML 20ML VIAL IV ONE (10:07)
[2024-04-03] MEDS ORDERED: NITROGLYCERIN 50MG PREMIX 250 ML IV ONE (10:08)
[2024-04-03] MEDS ORDERED: NOREPINEPHRINE BITARTRATE 1MG/ML 4ML IV ONE (10:19)
[2024-04-03] MEDS ORDERED: DOPAMINE 400MG/250ML PREMIX 250 ML IV ONE (10:19)
[2024-04-03] MEDS ORDERED: NOREPINEPHRINE 8MG/250ML PMX 250 ML IV NR (10:30)
[2024-04-03] MEDS ORDERED: ONDANSETRON HCL 4MG/2ML INJ ONE (10:51)
[2024-04-03] MEDS ORDERED: ACETAMINOPHEN 325MG TABLET PO PRN (11:30)
[2024-04-03] MEDS ORDERED: ATROPINE SULFATE 1MG/10ML SYR IV PRN (11:30)
[2024-04-03] MEDS ORDERED: LIDOCAINE HCL 1% 10 MG/ML 10ML VIAL ONE (14:01)
[2024-04-03] MEDS: CLOPIDOGREL 75MG TABLET PO NR (18:14)
[2024-04-03] MEDS: DOPAMINE 400MG/250ML PREMIX 250 ML IV PRN (18:15)
[2024-04-04] VITALS (68 sets, daily range): BP systolic 81–167; BP diastolic 49–90; PULSE 68–119; RESP 11–26; TEMP 97.3–98.2
[2024-04-04 06:47] LABS: BASOPHILS % 0.5 % (0.0-2.0); HEMATOCRIT. 36.5 % (36.0-48.0); HEMOGLOBIN. 12.4 g/dL (12.0-16.0); LYMPHOCYTES % 23.4 % (20.0-50.0); MEAN CORPUSCULAR HEMOGLOBIN 30.7 pg (28.0-32.0); MEAN CORPUSCULAR VOLUME 90.3 fL (81.0-99.0); MEAN PLATELET VOLUME 9.8 fl (7.4-10.4); MONOCYTES % 10.8 % (2.0-8.0); NEUTROPHILS % 63.3 % (40.0-76.0); PLATELET 260 x1000/uL (130-400); RED BLOOD CELL COUNT 4.04 mill/uL (4.2-5.4); RED CELL DISTRIBUTION WIDTH 13.8 % (11.6-14.6); WHITE BLOOD COUNT 8.2 x1000/uL (4.5-11.0)
[2024-04-04 07:00] LABS: CALCIUM 9.2 mg/dL (8.7-10.4); POTASSIUM 4.3 mEq/L (3.5-5.1)
[2024-04-04 07:04] LABS: CREATININE 1.1 mg/dL (0.6-1.0)
[2024-04-04] MEDS: CLOPIDOGREL 75MG TABLET PO SCH (09:35)
[2024-04-04] MEDS: METOPROLOL TARTRATE 25MG TABLET PO SCH (11:45)
[2024-04-04 12:42] LABS: CLARITY URINE CLOUDY (CLEAR); COLOR URINE RED (YELLOW); GLUCOSE URINE NEGATIVE (NEGATIVE); KETONES URINE NEGATIVE (NEGATIVE); LEUKOCYTE ESTERASE URINE 2+ (NEGATIVE); NITRITE URINE NEGATIVE (NEGATIVE); OCCULT BLOOD URINE 3+ (NEGATIVE); PROTEIN URINE 2+ (NEGATIVE); SPECIFIC GRAVITY URINE 1.016 (1.005-1.030)
[2024-04-04 13:36] LABS: BACTERIA URINE 1+; RBC URINE TNTC /hpf (0-2); SQUAMOUS EPITHELIAL CELL URINE NONE SEEN /lpf (RARE/1+)
[2024-04-05] VITALS (36 sets, daily range): BP systolic 94–176; BP diastolic 49–137; PULSE 59–87; RESP 12–23; TEMP 97.1–98.3
[2024-04-05] MEDS: AZITHROMYCIN 500MG/250ML 250 ML IV ONE (10:20)
[2024-04-05 10:52] LABS: POTASSIUM 4.3 mEq/L (3.5-5.1)
[2024-04-05 10:53] LABS: CALCIUM 9.2 mg/dL (8.7-10.4)
[2024-04-05 10:58] LABS: CREATININE 1.1 mg/dL (0.6-1.0)
[2024-04-06] VITALS (44 sets, daily range): BP systolic 107–163; BP diastolic 43–68; PULSE 55–87; RESP 11–23; TEMP 97.5–98.5
[2024-04-06] MEDS: ISOSORBIDE MONONITRATE 30MG TABLET SR 24HR PO SCH (11:05)
[2024-04-06] MEDS: AMLODIPINE 5MG TABLET PO NR (11:06)
[2024-04-06] MEDS ORDERED: METOPROLOL TARTRATE 50MG TABLET PO SCH (21:00)
[2024-04-07] VITALS (74 sets, daily range): BP systolic 113–177; BP diastolic 47–109; PULSE 75–100; RESP 11–28; TEMP 98.1–98.4
[2024-04-07 07:02] LABS: HEMATOCRIT 40.4 % (36.0-48.0); HEMOGLOBIN 13.7 g/dL (12.0-16.0); MEAN CORPUSCULAR HGB CONC 33.9 g/dL (31.0-37.0); MEAN CORPUSCULAR VOLUME 91.6 fL (81.0-99.0); PLATELET 284 x1000/uL (130-400); RED BLOOD CELL COUNT 4.41 mill/uL (4.2-5.4); RED CELL DISTRIBUTION WIDTH 13.3 % (11.6-14.6); WHITE BLOOD COUNT 9.5 x1000/uL (4.5-11.0)
[2024-04-07 07:14] LABS: POTASSIUM 4.2 mEq/L (3.5-5.1)
[2024-04-07 07:20] LABS: CREATININE 1.2 mg/dL (0.6-1.0)
[2024-04-07] MEDS ORDERED: HEPARIN 5000 UNITS/ML VIAL IV SCH (08:00)
[2024-04-07] MEDS: ISOSORBIDE MONONITRATE 30MG TABLET SR 24HR PO SCH (09:47)
[2024-04-07 09:50] LABS: BASOPHILS % 1.1 % (0.0-2.0); HEMATOCRIT. 37.7 % (36.0-48.0); LYMPHOCYTES % 26.3 % (20.0-50.0); MEAN CORPUSCULAR HEMOGLOBIN 31.2 pg (28.0-32.0); MEAN CORPUSCULAR HGB CONC 34.4 g/dL (31.0-37.0); MEAN CORPUSCULAR VOLUME 90.6 fL (81.0-99.0); MEAN PLATELET VOLUME 9.4 fl (7.4-10.4); MONOCYTES % 7.2 % (2.0-8.0); NEUTROPHILS % 63.4 % (40.0-76.0); PLATELET 299 x1000/uL (130-400); RED BLOOD CELL COUNT 4.16 mill/uL (4.2-5.4); RED CELL DISTRIBUTION WIDTH 13.4 % (11.6-14.6); WHITE BLOOD COUNT 9.6 x1000/uL (4.5-11.0)
[2024-04-07 09:57] LABS: CALCIUM 9.6 mg/dL (8.7-10.4)
[2024-04-07 09:59] LABS: PARTIAL THROMBOPLASTIN TIME 25.6 sec (23.4-31.0); PROTHROMBIN TIME 10.9 sec (9.6-11.0)
[2024-04-07 10:01] LABS: CREATININE 1.2 mg/dL (0.6-1.0)
[2024-04-07] MEDS: HEPARIN 5000 UNITS/ML VIAL IV SCH (11:21)
[2024-04-07] MEDS ORDERED: IPRATROPIUM/ALBUTEROL 0.5-3(2.5)MG/3ML NEB HHN PRN (11:45)
[2024-04-07] MEDS: HEPARIN 25,000 UNITS PREMIX 250 ML IV PRN (11:47)
[2024-04-07] MEDS: PANTOPRAZOLE SODIUM 40 MG/VIAL IV SCH (12:30)
[2024-04-07] MEDS ORDERED: HEPARIN 5000 UNITS/ML VIAL IV PRN (16:30)
[2024-04-08] VITALS (93 sets, daily range): BP systolic 102–174; BP diastolic 42–112; PULSE 69–118; RESP 11–32; TEMP 97.8–98.9
[2024-04-08 05:36] LABS: HEMATOCRIT 36.2 % (36.0-48.0); HEMOGLOBIN 12.6 g/dL (12.0-16.0); MEAN CORPUSCULAR HEMOGLOBIN 31.5 pg (28.0-32.0); MEAN CORPUSCULAR HGB CONC 34.8 g/dL (31.0-37.0); MEAN CORPUSCULAR VOLUME 90.7 fL (81.0-99.0); PLATELET 289 x1000/uL (130-400); RED BLOOD CELL COUNT 3.99 mill/uL (4.2-5.4); RED CELL DISTRIBUTION WIDTH 12.9 % (11.6-14.6); WHITE BLOOD COUNT 9.7 x1000/uL (4.5-11.0)
[2024-04-08 05:49] LABS: CALCIUM 9.4 mg/dL (8.7-10.4)
[2024-04-08 05:54] LABS: CREATININE 1.1 mg/dL (0.6-1.0)
[2024-04-08] MEDS: ISOSORBIDE MONONITRATE 60MG TABLET SR 24HR PO SCH (09:00)
[2024-04-08] MEDS: AMLODIPINE 5MG TABLET PO NR (11:32)
[2024-04-08] MEDS: ONDANSETRON HCL 4MG/2ML INJ IV PRN (21:19)
[2024-04-09] VITALS (84 sets, daily range): BP systolic 98–190; BP diastolic 33–80; PULSE 65–101; RESP 11–30; TEMP 97.1–98.9
[2024-04-09 05:24] LABS: CHLORIDE 103 mEq/L (98-107); POTASSIUM 4.4 mEq/L (3.5-5.1); SODIUM 137 mEq/L (136-145)
[2024-04-09 05:25] LABS: CALCIUM 9.2 mg/dL (8.7-10.4); CARBON DIOXIDE 28 mEq/L (21-32)
[2024-04-09 05:30] LABS: GLUCOSE 172 mg/dL (70-105); UREA NITROGEN BLOOD 24 mg/dL (9-23)
[2024-04-09 05:43] LABS: BASOPHILS % 0.6 % (0.0-2.0); HEMATOCRIT. 33.7 % (36.0-48.0); HEMOGLOBIN. 11.8 g/dL (12.0-16.0); LYMPHOCYTES % 27.1 % (20.0-50.0); MEAN CORPUSCULAR HEMOGLOBIN 31.5 pg (28.0-32.0); MEAN CORPUSCULAR HGB CONC 34.8 g/dL (31.0-37.0); MEAN CORPUSCULAR VOLUME 90.3 fL (81.0-99.0); MEAN PLATELET VOLUME 9.5 fl (7.4-10.4); MONOCYTES % 9.2 % (2.0-8.0); NEUTROPHILS % 60.1 % (40.0-76.0); PLATELET 288 x1000/uL (130-400); RED BLOOD CELL COUNT 3.73 mill/uL (4.2-5.4); RED CELL DISTRIBUTION WIDTH 12.8 % (11.6-14.6); WHITE BLOOD COUNT 8.7 x1000/uL (4.5-11.0)
[2024-04-09] MEDS: AMLODIPINE 10MG TABLET PO SCH (09:09)
[2024-04-09] MEDS ORDERED: ALPRAZOLAM 0.25 MG TABLET PO PRN (20:15)
[2024-04-09] MEDS ORDERED: ACETAMINOPHEN 325MG TABLET PO PRN (20:15)
[2024-04-09] MEDS: DOCUSATE SODIUM 100MG CAPSULE PO SCH (21:05)
[2024-04-09] MEDS: SODIUM CHLORIDE 0.9% INJ 3ML FLUSH IVF SCH (22:00)
[2024-04-10] VITALS (25 sets, daily range): BP systolic 71–164; BP diastolic 27–109; PULSE 69–98; RESP 10–24; TEMP 97.4–98.4
[2024-04-10] MEDS ORDERED: THROMBIN (BOVINE) 5000 UNITS/VIAL TOP ONE (05:16)
[2024-04-10] MEDS ORDERED: POLYMYXIN B SULFATE 500000 UNITS/VIAL ONE (05:16)
[2024-04-10] MEDS ORDERED: ACETAMINOPHEN 500MG TABLET ONE (05:17)
[2024-04-10 06:13] LABS: BASOPHILS % 0.6 % (0.0-2.0); EOSINOPHILS % 2.5 % (0.0-5.0); HEMATOCRIT. 33.5 % (36.0-48.0); HEMOGLOBIN. 11.5 g/dL (12.0-16.0); LYMPHOCYTES % 28.6 % (20.0-50.0); MEAN CORPUSCULAR HEMOGLOBIN 30.9 pg (28.0-32.0); MEAN CORPUSCULAR HGB CONC 34.3 g/dL (31.0-37.0); MEAN PLATELET VOLUME 9.2 fl (7.4-10.4); NEUTROPHILS % 60.3 % (40.0-76.0); PLATELET 285 x1000/uL (130-400); RED BLOOD CELL COUNT 3.73 mill/uL (4.2-5.4); RED CELL DISTRIBUTION WIDTH 13.2 % (11.6-14.6); WHITE BLOOD COUNT 9.1 x1000/uL (4.5-11.0)
[2024-04-10 06:19] LABS: CARBON DIOXIDE 26 mEq/L (21-32); CHLORIDE 105 mEq/L (98-107); POTASSIUM 4.6 mEq/L (3.5-5.1); SODIUM 137 mEq/L (136-145)
[2024-04-10 06:20] LABS: CALCIUM 9.5 mg/dL (8.7-10.4)
[2024-04-10 06:25] LABS: GLUCOSE 140 mg/dL (70-105); UREA NITROGEN BLOOD 20 mg/dL (9-23)
[2024-04-11] VITALS (25 sets, daily range): BP systolic 110–152; BP diastolic 46–80; PULSE 62–97; RESP 12–24; TEMP 97.8–98.2
[2024-04-11 06:17] LABS: BASOPHILS % 0.6 % (0.0-2.0); EOSINOPHILS % 2.7 % (0.0-5.0); HEMATOCRIT. 33.5 % (36.0-48.0); HEMOGLOBIN. 11.4 g/dL (12.0-16.0); LYMPHOCYTES % 25.7 % (20.0-50.0); MEAN CORPUSCULAR HEMOGLOBIN 30.9 pg (28.0-32.0); MEAN CORPUSCULAR HGB CONC 34.2 g/dL (31.0-37.0); MEAN CORPUSCULAR VOLUME 90.3 fL (81.0-99.0); MEAN PLATELET VOLUME 9.5 fl (7.4-10.4); MONOCYTES % 8.4 % (2.0-8.0); NEUTROPHILS % 62.6 % (40.0-76.0); PLATELET 286 x1000/uL (130-400); RED BLOOD CELL COUNT 3.71 mill/uL (4.2-5.4); RED CELL DISTRIBUTION WIDTH 13.2 % (11.6-14.6); WHITE BLOOD COUNT 9.8 x1000/uL (4.5-11.0)
[2024-04-11 06:29] LABS: CHLORIDE 104 mEq/L (98-107); POTASSIUM 4.2 mEq/L (3.5-5.1); SODIUM 137 mEq/L (136-145)
[2024-04-11 06:30] LABS: CARBON DIOXIDE 26 mEq/L (21-32)
[2024-04-11 06:31] LABS: CALCIUM 9.6 mg/dL (8.7-10.4)
[2024-04-11 06:35] LABS: GLUCOSE 155 mg/dL (70-105); UREA NITROGEN BLOOD 21 mg/dL (9-23)
[2024-04-11] MEDS: LEVOFLOXACIN 500MG PREMIX 100 ML IV SCH (20:28)
[2024-04-11] MEDS: ASCORBIC ACID 500 MG TABLET PO SCH (20:29)
[2024-04-11] MEDS: ALLOPURINOL 300 MG TABLET PO SCH (20:30)
[2024-04-11] MEDS ORDERED: DIPHENHYDRAMINE 25MG CAPSULE PO PRN (21:00)
[2024-04-11] MEDS ORDERED: BISACODYL 10MG SUPP PR PRN (21:00)
[2024-04-11] MEDS: CHLORHEXIDINE GLUCONATE 4% EXTERNAL USE TOP SCH (21:00)
[2024-04-12] VITALS (51 sets, daily range): BP systolic 102–179; BP diastolic 36–71; PULSE 66–89; RESP 11–31; TEMP 95.5–99.9
[2024-04-12] MEDS: HEPARIN 5000 UNITS/ML VIAL IV PRN (00:52)
[2024-04-12] MEDS ORDERED: NICARDIPINE 40MG/200ML PREMIX 200 ML IV PRN (05:00)
[2024-04-12] MEDS ORDERED: EPINEPHRINE 5 MG in DEXT 5% WATER 250 ML IV PRN (05:00)
[2024-04-12] MEDS ORDERED: PAPAVERINE HCL 180MG in SODIUM CHLORIDE 0.9% 24ML IV NR (05:00)
[2024-04-12] MEDS ORDERED: CEFAZOLIN 2GM/100ML 100 ML IV NR (05:00)
[2024-04-12] MEDS ORDERED: DEL NIDO CARDIOPLEGIA 1,000 ML (CHMC) IV ONE ×2 (05:00)
[2024-04-12] MEDS ORDERED: DOPAMINE 400 MG PREMIX 250 ML IV PRN (05:00)
[2024-04-12] MEDS ORDERED: NOREPINEPHRINE 8MG/250ML PMX 250 ML IV PRN ×2 (05:00→15:00)
[2024-04-12] MEDS ORDERED: DOBUTAMINE 250 MG/250 ML PREMIX IV PRN (05:00)
[2024-04-12] MEDS ORDERED: POLYMYXIN B SULFATE 500000 UNITS/VIAL ONE (05:51)
[2024-04-12] MEDS ORDERED: THROMBIN (BOVINE) 5000 UNITS/VIAL TOP ONE (05:51)
[2024-04-12] MEDS ORDERED: SKIN ADHESIVE 0.7 GM EA TOP ONE (05:51)
[2024-04-12 05:52] LABS: BASOPHILS % 0.7 % (0.0-2.0); DIFFERENTIAL COMMENT 0; EOSINOPHILS % 2.8 % (0.0-5.0); HEMATOCRIT. 34.2 % (36.0-48.0); HEMOGLOBIN. 11.6 g/dL (12.0-16.0); LYMPHOCYTES % 21.3 % (20.0-50.0); MEAN CORPUSCULAR HEMOGLOBIN 30.6 pg (28.0-32.0); MEAN CORPUSCULAR HGB CONC 34.1 g/dL (31.0-37.0); MEAN CORPUSCULAR VOLUME 89.7 fL (81.0-99.0); MONOCYTES % 7.4 % (2.0-8.0); NEUTROPHILS % 67.8 % (40.0-76.0); PLATELET 303 x1000/uL (130-400); RED BLOOD CELL COUNT 3.81 mill/uL (4.2-5.4); RED CELL DISTRIBUTION WIDTH 13.2 % (11.6-14.6); WHITE BLOOD COUNT 9.9 x1000/uL (4.5-11.0)
[2024-04-12 05:59] LABS: POTASSIUM 4.5 mEq/L (3.5-5.1)
[2024-04-12 06:00] LABS: CALCIUM 9.7 mg/dL (8.7-10.4)
[2024-04-12 06:05] LABS: CREATININE 1.1 mg/dL (0.6-1.0)
[2024-04-12] MEDS ORDERED: SEVOFLURANE 250 ML LIQUID INH ONE (06:05)
[2024-04-12] MEDS ORDERED: HEPARIN 1000 UNITS/ML 10ML ONE (06:05)
[2024-04-12] MEDS ORDERED: NITROGLYCERIN 50MG PREMIX 250 ML IV ONE (06:06)
[2024-04-12] MEDS ORDERED: ACETAMINOPHEN 500MG TABLET ONE (07:02)
[2024-04-12] MEDS ORDERED: FENTANYL CITRATE/PF 50MCG/ML 5ML VIAL ONE (07:04)
[2024-04-12] MEDS ORDERED: LIDOCAINE HCL 2% 5ML SYRINGE IV ONE (07:06)
[2024-04-12] MEDS ORDERED: ONDANSETRON HCL 4MG/2ML INJ ONE (07:06)
[2024-04-12] MEDS ORDERED: VECURONIUM BROMIDE 10 MG/VIAL IV ONE ×4 (07:07→13:03)
[2024-04-12] MEDS ORDERED: ALBUMIN HUMAN 12.5G/250ML (5%) IV ONE (07:08)
[2024-04-12] MEDS ORDERED: ESMOLOL 2500MG PREMIX 250 ML IV ONE (07:10)
[2024-04-12] MEDS ORDERED: AMINOCAPROIC ACID 250 MG/ML 20ML VIAL ONE (07:12)
[2024-04-12] MEDS ORDERED: PROPOFOL 200MG/20ML VIAL IV ONE (07:12)
[2024-04-12] MEDS: CHLORHEXIDINE GLUCONATE 4% EXTERNAL USE TOP SCH (08:08)
[2024-04-12] MEDS ORDERED: LABETALOL 5MG/ML 20ML VIAL IV ONE (08:11)
[2024-04-12] MEDS ORDERED: ALBUMIN HUMAN 25GM/100ML (25%) IV ONE (09:00)
[2024-04-12] MEDS ORDERED: PROPOFOL 10MG/ML 100ML 100 ML IV ONE (09:30)
[2024-04-12] MEDS ORDERED: DEXTROSE 50% WATER 50ML SYRINGE IV PRN ×2 (11:00)
[2024-04-12] MEDS ORDERED: CEFAZOLIN SODIUM 1000MG/VIAL ONE (11:14)
[2024-04-12] MEDS ORDERED: PROTAMINE SULFATE 10MG/ML VIAL 25ML IV ONE (12:50)
[2024-04-12] MEDS ORDERED: DEXMEDETOMIDINE 400 MCG/100 ML 100 ML IV ONE (12:50)
[2024-04-12] MEDS ORDERED: CALCIUM CHLORIDE 1GM/10ML SYR IV ONE (13:08)
[2024-04-12] MEDS ORDERED: HYDRALAZINE 20MG/ML VIAL ONE (13:46)
[2024-04-12 14:19] LABS: BASOPHILS % 0.3 % (0.0-2.0); EOSINOPHILS % 0.6 % (0.0-5.0); HEMATOCRIT. 31.1 % (36.0-48.0); HEMOGLOBIN. 10.9 g/dL (12.0-16.0); MEAN CORPUSCULAR HGB CONC 35.1 g/dL (31.0-37.0); MEAN CORPUSCULAR VOLUME 88.3 fL (81.0-99.0); MEAN PLATELET VOLUME 8.9 fl (7.4-10.4); MONOCYTES % 3.5 % (2.0-8.0); NEUTROPHILS % 86.6 % (40.0-76.0); PLATELET 156 x1000/uL (130-400); RED BLOOD CELL COUNT 3.53 mill/uL (4.2-5.4); RED CELL DISTRIBUTION WIDTH 13.4 % (11.6-14.6); WHITE BLOOD COUNT 11.7 x1000/uL (4.5-11.0)
[2024-04-12 14:29] LABS: INR 1.2; PARTIAL THROMBOPLASTIN TIME 30.1 sec (23.4-31.0); PROTHROMBIN TIME 12.9 sec (9.6-11.0)
[2024-04-12 14:33] LABS: CHLORIDE 102 mEq/L (98-107); POTASSIUM 4.7 mEq/L (3.5-5.1); SODIUM 139 mEq/L (136-145)
[2024-04-12 14:34] LABS: CALCIUM 8.6 mg/dL (8.7-10.4); CARBON DIOXIDE 26 mEq/L (21-32)
[2024-04-12 14:39] LABS: CREATININE 1.2 mg/dL (0.6-1.0); GLUCOSE 105 mg/dL (70-105)
[2024-04-12 14:40] LABS: UREA NITROGEN BLOOD 18 mg/dL (9-23)
[2024-04-12 14:41] LABS: ALANINE AMINOTRANSFERASE 16 IU/L (10-49); ASPARTATE AMINOTRANSFERASE 24 IU/L (<34)
[2024-04-12 14:42] LABS: BILIRUBIN TOTAL 0.4 mg/dL (0.1-1.0); PHOSPHORUS 1.6 mg/dL (2.5-4.9)
[2024-04-12 14:51] LABS: BG BASE EXCESS 1.6 mmol/L (-2.0-2.0); BG CARBOXYHEMOGLOBIN 0.3 % (0.5-1.5); BG DEOXYHEMOGLOBIN 0.9 % (0.0-5.0); BG FRACTION INSPIRED OXYGEN 100; BG HCO3 ACT 25.4 mmol/L (22.0-26.0); BG METHEMOGLOBIN 0.4 % (0.0-1.5); BG OXYGEN SATURATION 99.1 % (92.0-98.5); BG OXYHEMOGLOBIN 98.4 % (94.0-97.0); BG PH 7.454 (7.350-7.450); BG PO2 512.6 mmHg (75.0-100.0); BG SAMPLE SITE ALINE; BG TOTAL HEMOGLOBIN 12.4 g/dL (12.0-18.0); BG VENT MODE VENT - AC
[2024-04-12 14:52] LABS: PROTEIN TOTAL 5.4 g/dL (6.0-8.3)
[2024-04-12] MEDS ORDERED: SODIUM CHLORIDE 0.9% 500 ML IV PRN (15:00)
[2024-04-12] MEDS ORDERED: MAGNESIUM 2 G PREMIX 50 ML IV PRN ×2 (15:00→16:00)
[2024-04-12] MEDS ORDERED: MAGNESIUM SULFATE 3 GM in DEXT 5% WATER 100 ML IV PRN (15:00)
[2024-04-12] MEDS: DOCUSATE SODIUM 100MG CAPSULE PO SCH (15:00)
[2024-04-12] MEDS ORDERED: ACETAMINOPHEN 325MG TABLET PO PRN (15:00)
[2024-04-12] MEDS ORDERED: ALBUMIN HUMAN 12.5G/250ML (5%) IV PRN (15:00)
[2024-04-12] MEDS ORDERED: LEVOFLOXACIN 500MG PREMIX 100 ML IV SCH (15:15)
[2024-04-12] MEDS: AMINOCAPROIC ACID 5,000 MG in SODIUM CHLORIDE 0.9% 250 ML IV NR (15:23)
[2024-04-12] MEDS: INSULIN REGULAR 100 U/100 ML PREMIX IV PRN (15:23)
[2024-04-12] MEDS: DEXT 5%/0.45% NACL 1000ML 1,000 ML IV SCH (15:24)
[2024-04-12] MEDS ORDERED: NALOXONE HCL 0.4MG/ML VIAL IV PRN (15:45)
[2024-04-12] MEDS ORDERED: KCL 10MEQ/50ML PREMIX 200 ML IV PRN (16:00)
[2024-04-12] MEDS ORDERED: MAGNESIUM 1 G PREMIX 100 ML IV PRN (16:00)
[2024-04-12] MEDS ORDERED: KCL 10MEQ/50ML PREMIX 150 ML IV PRN (16:00)
[2024-04-12 16:05] LABS: BG BASE EXCESS 1.7 mmol/L (-2.0-2.0); BG CARBOXYHEMOGLOBIN 0.3 % (0.5-1.5); BG FRACTION INSPIRED OXYGEN 40; BG HCO3 ACT 25.6 mmol/L (22.0-26.0); BG METHEMOGLOBIN 0.4 % (0.0-1.5); BG OXYHEMOGLOBIN 97.3 % (94.0-97.0); BG PCO2 37.8 mmHg (35.0-45.0); BG PH 7.449 (7.350-7.450); BG PO2 128.6 mmHg (75.0-100.0); BG SAMPLE SITE ALINE; BG TOTAL HEMOGLOBIN 13.7 g/dL (12.0-18.0); BG VENT MODE VENT - AC
[2024-04-12] MEDS: BLOOD SUGAR DIAGNOSTIC STRIP TEST SCH (16:15)
[2024-04-12] MEDS: CEFAZOLIN 1000MG PREMIX 50 ML IV SCH (16:25)
[2024-04-12] MEDS: MAGNESIUM HYDROXIDE 400MG/5ML 30ML UDC PO SCH (16:25)
[2024-04-12] MEDS: AMINOCAPROIC ACID 5,000 MG in SODIUM CHLORIDE 0.9% 230 ML IV NR (16:26)
[2024-04-12] MEDS: IPRATROPIUM/ALBUTEROL 0.5-3(2.5)MG/3ML NEB HHN SCH (16:40)
[2024-04-12 17:28] LABS: BASOPHILS % 0.2 % (0.0-2.0); EOSINOPHILS % 0.2 % (0.0-5.0); HEMATOCRIT. 37.6 % (36.0-48.0); HEMOGLOBIN. 12.6 g/dL (12.0-16.0); MEAN CORPUSCULAR HEMOGLOBIN 30.1 pg (28.0-32.0); MEAN CORPUSCULAR HGB CONC 33.4 g/dL (31.0-37.0); MEAN CORPUSCULAR VOLUME 89.9 fL (81.0-99.0); MEAN PLATELET VOLUME 9.4 fl (7.4-10.4); MONOCYTES % 5.9 % (2.0-8.0); NEUTROPHILS % 85.7 % (40.0-76.0); PLATELET 169 x1000/uL (130-400); RED BLOOD CELL COUNT 4.18 mill/uL (4.2-5.4); RED CELL DISTRIBUTION WIDTH 13.4 % (11.6-14.6); WHITE BLOOD COUNT 11.5 x1000/uL (4.5-11.0)
[2024-04-12 17:37] LABS: CHLORIDE 105 mEq/L (98-107); POTASSIUM 4.3 mEq/L (3.5-5.1); SODIUM 141 mEq/L (136-145)
[2024-04-12 17:38] LABS: CALCIUM 8.8 mg/dL (8.7-10.4); CARBON DIOXIDE 27 mEq/L (21-32)
[2024-04-12 17:43] LABS: CREATININE 1.3 mg/dL (0.6-1.0); GLUCOSE 174 mg/dL (70-105); UREA NITROGEN BLOOD 15 mg/dL (9-23)
[2024-04-12] MEDS ORDERED: EPINEPHRINE 5 MG in SODIUM CHLORIDE 0.9% 245 ML IV PRN (20:00)
[2024-04-12 20:07] LABS: BG BASE EXCESS 2.9 mmol/L (-2.0-2.0); BG CARBOXYHEMOGLOBIN 0.2 % (0.5-1.5); BG DEOXYHEMOGLOBIN 1.8 % (0.0-5.0); BG FRACTION INSPIRED OXYGEN 40; BG HCO3 ACT 27.4 mmol/L (22.0-26.0); BG METHEMOGLOBIN 0.4 % (0.0-1.5); BG OXYGEN SATURATION 98.2 % (92.0-98.5); BG OXYHEMOGLOBIN 97.6 % (94.0-97.0); BG PCO2 41.5 mmHg (35.0-45.0); BG PH 7.437 (7.350-7.450); BG PO2 132.4 mmHg (75.0-100.0); BG SAMPLE SITE ALINE; BG TOTAL HEMOGLOBIN 12.9 g/dL (12.0-18.0); BG VENT MODE VENT - AC
[2024-04-12 21:16] LABS: BG BASE EXCESS 1.7 mmol/L (-2.0-2.0); BG CARBOXYHEMOGLOBIN 0.1 % (0.5-1.5); BG DEOXYHEMOGLOBIN 1.2 % (0.0-5.0); BG FRACTION INSPIRED OXYGEN 30; BG HCO3 ACT 26.5 mmol/L (22.0-26.0); BG METHEMOGLOBIN 0.2 % (0.0-1.5); BG OXYGEN SATURATION 98.8 % (92.0-98.5); BG OXYHEMOGLOBIN 98.5 % (94.0-97.0); BG PCO2 42.3 mmHg (35.0-45.0); BG PH 7.415 (7.350-7.450); BG SAMPLE SITE ALINE; BG TOTAL HEMOGLOBIN 13.3 g/dL (12.0-18.0); BG VENT MODE VENT - CPAP
[2024-04-12] MEDS: MORPHINE SULFATE 2 MG/ML CPJ (NOT FOR IM USE) IV PRN (22:50)
[2024-04-13] VITALS (64 sets, daily range): BP systolic 100–156; BP diastolic 39–62; PULSE 73–88; RESP 15–37; TEMP 98.4–99.6; O2SAT 95–99
[2024-04-13 00:13] LABS: HEMOGLOBIN 12.2 g/dL (12.0-16.0); MEAN CORPUSCULAR HEMOGLOBIN 30.1 pg (28.0-32.0); MEAN CORPUSCULAR HGB CONC 33.9 g/dL (31.0-37.0); MEAN CORPUSCULAR VOLUME 88.8 fL (81.0-99.0); PLATELET 181 x1000/uL (130-400); RED BLOOD CELL COUNT 4.05 mill/uL (4.2-5.4); RED CELL DISTRIBUTION WIDTH 13.8 % (11.6-14.6); WHITE BLOOD COUNT 11.2 x1000/uL (4.5-11.0)
[2024-04-13 00:17] LABS: CHLORIDE 108 mEq/L (98-107); SODIUM 145 mEq/L (136-145)
[2024-04-13 00:18] LABS: CALCIUM 8.8 mg/dL (8.7-10.4); CARBON DIOXIDE 30 mEq/L (21-32)
[2024-04-13 00:23] LABS: CREATININE 1.3 mg/dL (0.6-1.0); GLUCOSE 131 mg/dL (70-105); UREA NITROGEN BLOOD 16 mg/dL (9-23)
[2024-04-13 00:25] LABS: PHOSPHORUS 4.5 mg/dL (2.5-4.9)
[2024-04-13] MEDS: KCL 10MEQ/50ML PREMIX 100 ML IV PRN (01:08)
[2024-04-13] MEDS: MAGNESIUM 1 G PREMIX 100 ML IV PRN (01:08)
[2024-04-13] MEDS: OXYCODONE HCL/ACETAMINOPHEN 5/325MG TABLET PO PRN (02:33)
[2024-04-13 05:26] LABS: BG BASE EXCESS 4.7 mmol/L (-2.0-2.0); BG CARBOXYHEMOGLOBIN 0.6 % (0.5-1.5); BG DEOXYHEMOGLOBIN 2.9 % (0.0-5.0); BG FRACTION INSPIRED OXYGEN 36; BG HCO3 ACT 30.1 mmol/L (22.0-26.0); BG METHEMOGLOBIN 0.2 % (0.0-1.5); BG OXYGEN SATURATION 97.1 % (92.0-98.5); BG OXYHEMOGLOBIN 96.3 % (94.0-97.0); BG PCO2 47.3 mmHg (35.0-45.0); BG PH 7.421 (7.350-7.450); BG PO2 98.4 mmHg (75.0-100.0); BG TOTAL HEMOGLOBIN 13.2 g/dL (12.0-18.0); BG VENT MODE NASAL CANNULA
[2024-04-13] MEDS: INSULIN REGULAR 100U/100ML PMX 100 ML IV SCH (05:41)
[2024-04-13 05:50] LABS: HEMATOCRIT. 36.9 % (36.0-48.0); HEMOGLOBIN. 12.4 g/dL (12.0-16.0); MEAN CORPUSCULAR HEMOGLOBIN 29.9 pg (28.0-32.0); MEAN CORPUSCULAR HGB CONC 33.7 g/dL (31.0-37.0); MEAN CORPUSCULAR VOLUME 88.6 fL (81.0-99.0); PLATELET 187 x1000/uL (130-400); RED BLOOD CELL COUNT 4.16 mill/uL (4.2-5.4); RED CELL DISTRIBUTION WIDTH 13.9 % (11.6-14.6); WHITE BLOOD COUNT 12.6 x1000/uL (4.5-11.0)
[2024-04-13 05:52] LABS: CHLORIDE 107 mEq/L (98-107); POTASSIUM 3.9 mEq/L (3.5-5.1); SODIUM 145 mEq/L (136-145)
[2024-04-13 05:53] LABS: CALCIUM 9.2 mg/dL (8.7-10.4); CARBON DIOXIDE 33 mEq/L (21-32)
[2024-04-13 05:58] LABS: CREATININE 1.3 mg/dL (0.6-1.0); GLUCOSE 91 mg/dL (70-105); UREA NITROGEN BLOOD 17 mg/dL (9-23)
[2024-04-13 06:08] LABS: DIFFERENTIAL COMMENT 1
[2024-04-13] MEDS: FUROSEMIDE 20MG/2ML VIAL IVP NR ×2 (07:39→13:07)
[2024-04-13] MEDS: FAMOTIDINE 20MG/2ML VIAL IV SCH (08:45)
[2024-04-13] MEDS: ASPIRIN 81MG TABLET PO SCH (08:45)
[2024-04-13] MEDS: METOPROLOL TARTRATE 25MG TABLET PO SCH (08:46)
[2024-04-13 11:04] LABS: PLATELET ESTIMATE NORMAL
[2024-04-13 13:38] LABS: HEMATOCRIT 39.8 % (36.0-48.0); HEMOGLOBIN 13.1 g/dL (12.0-16.0); MEAN CORPUSCULAR HEMOGLOBIN 29.9 pg (28.0-32.0); MEAN CORPUSCULAR VOLUME 90.5 fL (81.0-99.0); PLATELET 188 x1000/uL (130-400); RED BLOOD CELL COUNT 4.39 mill/uL (4.2-5.4); RED CELL DISTRIBUTION WIDTH 14.2 % (11.6-14.6); WHITE BLOOD COUNT 15.9 x1000/uL (4.5-11.0)
[2024-04-13 14:12] LABS: POTASSIUM 4.3 mEq/L (3.5-5.1)
[2024-04-13 14:13] LABS: CALCIUM 9.1 mg/dL (8.7-10.4)
[2024-04-13 14:18] LABS: CREATININE 1.3 mg/dL (0.6-1.0)
[2024-04-13] MEDS: ALBUMIN HUMAN 12.5G/250ML (5%) IV NR (18:48)
[2024-04-13 20:01] LABS: HEMATOCRIT 37.8 % (36.0-48.0); HEMOGLOBIN 12.5 g/dL (12.0-16.0); MEAN CORPUSCULAR HEMOGLOBIN 30.1 pg (28.0-32.0); MEAN CORPUSCULAR HGB CONC 33.1 g/dL (31.0-37.0); MEAN CORPUSCULAR VOLUME 90.9 fL (81.0-99.0); PLATELET 182 x1000/uL (130-400); RED BLOOD CELL COUNT 4.15 mill/uL (4.2-5.4); RED CELL DISTRIBUTION WIDTH 14.2 % (11.6-14.6); WHITE BLOOD COUNT 14.3 x1000/uL (4.5-11.0)
[2024-04-13 20:03] LABS: CHLORIDE 106 mEq/L (98-107); POTASSIUM 3.7 mEq/L (3.5-5.1); SODIUM 142 mEq/L (136-145)
[2024-04-13 20:04] LABS: CALCIUM 9.1 mg/dL (8.7-10.4); CARBON DIOXIDE 33 mEq/L (21-32)
[2024-04-13 20:09] LABS: CREATININE 1.2 mg/dL (0.6-1.0); GLUCOSE 118 mg/dL (70-105); UREA NITROGEN BLOOD 18 mg/dL (9-23)
[2024-04-13 20:11] LABS: PHOSPHORUS 4.4 mg/dL (2.5-4.9)
[2024-04-13] MEDS: LEVOFLOXACIN 250MG PREMIX 50 ML IV SCH (20:38)
[2024-04-13] MEDS: FUROSEMIDE 40MG/4ML VIAL IVP NR (21:35)
[2024-04-14] VITALS (30 sets, daily range): BP systolic 104–176; BP diastolic 44–75; PULSE 83–109; RESP 14–32; TEMP 98.3–99.5; O2SAT 95–97
[2024-04-14 06:19] LABS: BASOPHILS % 0.1 % (0.0-2.0); EOSINOPHILS % 0.7 % (0.0-5.0); HEMATOCRIT. 35.6 % (36.0-48.0); HEMOGLOBIN. 11.8 g/dL (12.0-16.0); LYMPHOCYTES % 8.4 % (20.0-50.0); MEAN CORPUSCULAR HEMOGLOBIN 30.1 pg (28.0-32.0); MEAN CORPUSCULAR HGB CONC 33.2 g/dL (31.0-37.0); MEAN CORPUSCULAR VOLUME 90.7 fL (81.0-99.0); MEAN PLATELET VOLUME 9.7 fl (7.4-10.4); MONOCYTES % 6.9 % (2.0-8.0); NEUTROPHILS % 83.9 % (40.0-76.0); PLATELET 182 x1000/uL (130-400); RED BLOOD CELL COUNT 3.93 mill/uL (4.2-5.4); RED CELL DISTRIBUTION WIDTH 13.9 % (11.6-14.6); WHITE BLOOD COUNT 14.5 x1000/uL (4.5-11.0)
[2024-04-14 06:30] LABS: CARBON DIOXIDE 33 mEq/L (21-32); CHLORIDE 104 mEq/L (98-107); POTASSIUM 4.1 mEq/L (3.5-5.1); SODIUM 142 mEq/L (136-145)
[2024-04-14 06:36] LABS: CREATININE 1.1 mg/dL (0.6-1.0); GLUCOSE 128 mg/dL (70-105)
[2024-04-14 06:37] LABS: UREA NITROGEN BLOOD 20 mg/dL (9-23)
[2024-04-15] VITALS (36 sets, daily range): BP systolic 79–151; BP diastolic 52–99; PULSE 95–120; RESP 13–33; TEMP 98.9–99.2; O2SAT 95–97
[2024-04-15 05:41] LABS: BASOPHILS % 0.2 % (0.0-2.0); EOSINOPHILS % 1.4 % (0.0-5.0); HEMATOCRIT. 35.2 % (36.0-48.0); HEMOGLOBIN. 11.6 g/dL (12.0-16.0); LYMPHOCYTES % 11.3 % (20.0-50.0); MEAN CORPUSCULAR HEMOGLOBIN 30.4 pg (28.0-32.0); MEAN CORPUSCULAR VOLUME 91.9 fL (81.0-99.0); MEAN PLATELET VOLUME 9.3 fl (7.4-10.4); MONOCYTES % 8.9 % (2.0-8.0); NEUTROPHILS % 78.2 % (40.0-76.0); PLATELET 183 x1000/uL (130-400); RED BLOOD CELL COUNT 3.83 mill/uL (4.2-5.4); RED CELL DISTRIBUTION WIDTH 14.2 % (11.6-14.6); WHITE BLOOD COUNT 13.3 x1000/uL (4.5-11.0)
[2024-04-15 05:44] LABS: CHLORIDE 104 mEq/L (98-107); POTASSIUM 4.8 mEq/L (3.5-5.1); SODIUM 137 mEq/L (136-145)
[2024-04-15 05:45] LABS: CALCIUM 8.6 mg/dL (8.7-10.4); CARBON DIOXIDE 32 mEq/L (21-32)
[2024-04-15 05:50] LABS: CREATININE 0.9 mg/dL (0.6-1.0); GLUCOSE 162 mg/dL (70-105); UREA NITROGEN BLOOD 19 mg/dL (9-23)
[2024-04-15 05:52] LABS: PHOSPHORUS 2.8 mg/dL (2.5-4.9)
[2024-04-15] MEDS: FUROSEMIDE 40MG/4ML VIAL IVP NR (07:47)
[2024-04-15] MEDS: BLOOD SUGAR DIAGNOSTIC STRIP TEST SCH (07:47)
[2024-04-15] MEDS: INSULIN LISPRO 100 UNITS/ML SUBCUT SCH (07:48)
[2024-04-15] MEDS: ONDANSETRON HCL 4MG/2ML INJ IV PRN (16:11)
[2024-04-16] VITALS (32 sets, daily range): BP systolic 97–129; BP diastolic 48–76; PULSE 91–126; RESP 12–31; TEMP 97.9–100.1; O2SAT 98–99
[2024-04-16] MEDS: OXYCODONE HCL/ACETAMINOPHEN 5/325MG TABLET PO PRN (04:38)
[2024-04-16 08:59] LABS: CHLORIDE 102 mEq/L (98-107); POTASSIUM 5.2 mEq/L (3.5-5.1); SODIUM 137 mEq/L (136-145)
[2024-04-16 09:00] LABS: CALCIUM 9.4 mg/dL (8.7-10.4); CARBON DIOXIDE 31 mEq/L (21-32)
[2024-04-16 09:05] LABS: CREATININE 0.9 mg/dL (0.6-1.0); GLUCOSE 162 mg/dL (70-105); UREA NITROGEN BLOOD 23 mg/dL (9-23)
[2024-04-16 09:25] LABS: BASOPHILS % 0.4 % (0.0-2.0); EOSINOPHILS % 2.7 % (0.0-5.0); HEMOGLOBIN. 12.5 g/dL (12.0-16.0); LYMPHOCYTES % 16.8 % (20.0-50.0); MEAN CORPUSCULAR HEMOGLOBIN 30.4 pg (28.0-32.0); MEAN CORPUSCULAR HGB CONC 32.7 g/dL (31.0-37.0); MEAN CORPUSCULAR VOLUME 92.8 fL (81.0-99.0); MEAN PLATELET VOLUME 9.6 fl (7.4-10.4); MONOCYTES % 9.5 % (2.0-8.0); NEUTROPHILS % 70.6 % (40.0-76.0); PLATELET 230 x1000/uL (130-400); WHITE BLOOD COUNT 10.7 x1000/uL (4.5-11.0)
[2024-04-16] MEDS: ACETYLCYSTEINE 200MG/ML 20% VIAL 4ML INH SCH (13:56)
[2024-04-16] MEDS: SODIUM CHLORIDE 3% FOR INH 4ML NEB INH SCH (15:40)
[2024-04-16] MEDS: FUROSEMIDE 40MG/4ML VIAL IVP NR (17:48)
[2024-04-16] MEDS: GUAIFENESIN 600MG ER TABLET PO SCH (21:15)
[2024-04-17] VITALS (55 sets, daily range): BP systolic 66–148; BP diastolic 33–78; PULSE 84–130; RESP 10–43; TEMP 98.7–99.8; O2SAT 99–100
[2024-04-17 05:09] LABS: BASOPHILS % 0.6 % (0.0-2.0); EOSINOPHILS % 2.6 % (0.0-5.0); HEMATOCRIT. 35.3 % (36.0-48.0); HEMOGLOBIN. 11.8 g/dL (12.0-16.0); LYMPHOCYTES % 14.4 % (20.0-50.0); MEAN CORPUSCULAR HEMOGLOBIN 30.8 pg (28.0-32.0); MEAN CORPUSCULAR HGB CONC 33.5 g/dL (31.0-37.0); MEAN PLATELET VOLUME 8.7 fl (7.4-10.4); MONOCYTES % 10.5 % (2.0-8.0); NEUTROPHILS % 71.9 % (40.0-76.0); PLATELET 232 x1000/uL (130-400); RED BLOOD CELL COUNT 3.84 mill/uL (4.2-5.4); RED CELL DISTRIBUTION WIDTH 13.7 % (11.6-14.6); WHITE BLOOD COUNT 9.9 x1000/uL (4.5-11.0)
[2024-04-17 05:18] LABS: CALCIUM 9.5 mg/dL (8.7-10.4); CARBON DIOXIDE 29 mEq/L (21-32); CHLORIDE 99 mEq/L (98-107); SODIUM 135 mEq/L (136-145)
[2024-04-17 05:23] LABS: CREATININE 0.9 mg/dL (0.6-1.0)
[2024-04-17 05:24] LABS: GLUCOSE 172 mg/dL (70-105); UREA NITROGEN BLOOD 28 mg/dL (9-23)
[2024-04-17 05:26] LABS: PHOSPHORUS 5.8 mg/dL (2.5-4.9)
[2024-04-17] MEDS: MAGNESIUM SULFATE 3 GM in DEXT 5% WATER 100 ML IV PRN (06:50)
[2024-04-17 09:46] LABS: BG BASE EXCESS 2.3 mmol/L (-2.0-2.0); BG CARBOXYHEMOGLOBIN 0.2 % (0.5-1.5); BG DEOXYHEMOGLOBIN 5.4 % (0.0-5.0); BG FRACTION INSPIRED OXYGEN 70; BG HCO3 ACT 25.9 mmol/L (22.0-26.0); BG METHEMOGLOBIN 0.3 % (0.0-1.5); BG OXYGEN SATURATION 94.6 % (92.0-98.5); BG OXYHEMOGLOBIN 94.1 % (94.0-97.0); BG PCO2 36.3 mmHg (35.0-45.0); BG PH 7.472 (7.350-7.450); BG PO2 69.7 mmHg (75.0-100.0); BG SAMPLE SITE RIGHT BRACHIAL; BG VENT MODE HIGH FLOW
[2024-04-17] MEDS ORDERED: ESMOLOL 2500MG PREMIX 250 ML IV ONE (11:27)
[2024-04-17] MEDS ORDERED: DEXMEDETOMIDINE 400 MCG/100 ML 100 ML IV ONE (11:27)
[2024-04-17] MEDS ORDERED: PROPOFOL 200MG/20ML VIAL IV ONE (12:06)
[2024-04-17] MEDS ORDERED: ONDANSETRON HCL 4MG/2ML INJ ONE (12:55)
[2024-04-17] MEDS ORDERED: METOCLOPRAMIDE HCL 10MG/2ML VIAL ONE (12:55)
[2024-04-17] MEDS ORDERED: TETRACAINE/BENZOCAINE/BUTAMBEN 20 GM SPRAY MM ONE (14:26)
[2024-04-17] MEDS: ALBUMIN HUMAN 12.5G/250ML (5%) IV NR (15:29)
[2024-04-17] MEDS: CALCIUM CHLORIDE 1GM/10ML SYR IV NR (15:45)
[2024-04-18] VITALS (45 sets, daily range): BP systolic 66–146; BP diastolic 48–78; PULSE 99–124; RESP 15–33; TEMP 98.1–99.2; O2SAT 94–100
[2024-04-18] MEDS: NITROGLYCERIN 0.4MG TABLET SL SL PRN (01:47)
[2024-04-18 05:47] LABS: BASOPHILS % 0.5 % (0.0-2.0); HEMATOCRIT. 36.7 % (36.0-48.0); HEMOGLOBIN. 11.9 g/dL (12.0-16.0); LYMPHOCYTES % 12.6 % (20.0-50.0); MEAN CORPUSCULAR HEMOGLOBIN 29.9 pg (28.0-32.0); MEAN CORPUSCULAR HGB CONC 32.4 g/dL (31.0-37.0); MEAN CORPUSCULAR VOLUME 92.5 fL (81.0-99.0); MEAN PLATELET VOLUME 8.3 fl (7.4-10.4); MONOCYTES % 9.9 % (2.0-8.0); PLATELET 276 x1000/uL (130-400); RED BLOOD CELL COUNT 3.97 mill/uL (4.2-5.4); RED CELL DISTRIBUTION WIDTH 13.7 % (11.6-14.6); WHITE BLOOD COUNT 12.7 x1000/uL (4.5-11.0)
[2024-04-18 06:00] LABS: CHLORIDE 100 mEq/L (98-107); POTASSIUM 4.8 mEq/L (3.5-5.1); SODIUM 136 mEq/L (136-145)
[2024-04-18 06:01] LABS: CALCIUM 10.1 mg/dL (8.7-10.4); CARBON DIOXIDE 30 mEq/L (21-32)
[2024-04-18 06:06] LABS: GLUCOSE 174 mg/dL (70-105); UREA NITROGEN BLOOD 31 mg/dL (9-23)
[2024-04-18] MEDS: IPRATROPIUM/ALBUTEROL 0.5-3(2.5)MG/3ML NEB HHN SCH (08:42)
[2024-04-18] MEDS ORDERED: ACETYLCYSTEINE 200MG/ML 20% VIAL 4ML INH SCH (20:00)
[2024-04-18] MEDS: ACETYLCYSTEINE 200MG/ML 20% VIAL 4ML INH SCH (21:08)
[2024-04-19] VITALS (46 sets, daily range): BP systolic 94–156; BP diastolic 45–113; PULSE 96–116; RESP 15–39; TEMP 97.4–98.7
[2024-04-19 06:16] LABS: LYMPHOCYTES % 12.8 % (20.0-50.0); MEAN CORPUSCULAR HEMOGLOBIN 29.8 pg (28.0-32.0); MEAN CORPUSCULAR HGB CONC 32.3 g/dL (31.0-37.0); MEAN CORPUSCULAR VOLUME 92.3 fL (81.0-99.0); MEAN PLATELET VOLUME 8.7 fl (7.4-10.4); MONOCYTES % 9.6 % (2.0-8.0); NEUTROPHILS % 74.6 % (40.0-76.0); PLATELET 289 x1000/uL (130-400); RED BLOOD CELL COUNT 3.68 mill/uL (4.2-5.4); RED CELL DISTRIBUTION WIDTH 13.8 % (11.6-14.6); WHITE BLOOD COUNT 12.1 x1000/uL (4.5-11.0)
[2024-04-19 06:29] LABS: CHLORIDE 104 mEq/L (98-107); POTASSIUM 4.7 mEq/L (3.5-5.1); SODIUM 138 mEq/L (136-145)
[2024-04-19 06:30] LABS: CARBON DIOXIDE 29 mEq/L (21-32)
[2024-04-19 06:31] LABS: CALCIUM 10.3 mg/dL (8.7-10.4)
[2024-04-19 06:35] LABS: CREATININE 0.9 mg/dL (0.6-1.0); GLUCOSE 143 mg/dL (70-105); UREA NITROGEN BLOOD 28 mg/dL (9-23)
[2024-04-19 07:14] LABS: BG BASE EXCESS 3.4 mmol/L (-2.0-2.0); BG CARBOXYHEMOGLOBIN 0.3 % (0.5-1.5); BG DEOXYHEMOGLOBIN 1.6 % (0.0-5.0); BG FRACTION INSPIRED OXYGEN 32; BG HCO3 ACT 27.2 mmol/L (22.0-26.0); BG METHEMOGLOBIN 0.1 % (0.0-1.5); BG OXYGEN SATURATION 98.4 % (92.0-98.5); BG PCO2 38.5 mmHg (35.0-45.0); BG PH 7.467 (7.350-7.450); BG PO2 126.4 mmHg (75.0-100.0); BG SAMPLE SITE RIGHT RADIAL; BG TOTAL HEMOGLOBIN 12.3 g/dL (12.0-18.0); BG VENT MODE NASAL CANNULA
[2024-04-19] MEDS: SODIUM CHLORIDE 0.9% 1,000 ML IV SCH (14:54)
[2024-04-19] MEDS: METOPROLOL TARTRATE 25MG TABLET PO SCH (23:42)
[2024-04-20] VITALS (11 sets, daily range): BP systolic 115–134; BP diastolic 52–68; PULSE 92–101; RESP 18–31; TEMP 97.8–98.4; O2SAT 100
[2024-04-20 08:19] LABS: BASOPHILS % 0.6 % (0.0-2.0); EOSINOPHILS % 2.4 % (0.0-5.0); HEMOGLOBIN. 10.5 g/dL (12.0-16.0); LYMPHOCYTES % 10.8 % (20.0-50.0); MEAN CORPUSCULAR HEMOGLOBIN 30.1 pg (28.0-32.0); MEAN CORPUSCULAR HGB CONC 32.8 g/dL (31.0-37.0); MEAN PLATELET VOLUME 8.8 fl (7.4-10.4); MONOCYTES % 11.2 % (2.0-8.0); PLATELET 305 x1000/uL (130-400); RED BLOOD CELL COUNT 3.48 mill/uL (4.2-5.4); RED CELL DISTRIBUTION WIDTH 13.5 % (11.6-14.6)
[2024-04-20 08:22] LABS: CHLORIDE 106 mEq/L (98-107); POTASSIUM 4.4 mEq/L (3.5-5.1); SODIUM 140 mEq/L (136-145)
[2024-04-20 08:23] LABS: CALCIUM 9.7 mg/dL (8.7-10.4); CARBON DIOXIDE 27 mEq/L (21-32)
[2024-04-20 08:28] LABS: CREATININE 0.8 mg/dL (0.6-1.0)
[2024-04-20 08:29] LABS: GLUCOSE 130 mg/dL (70-105); UREA NITROGEN BLOOD 26 mg/dL (9-23)
[2024-04-20 11:50] LABS: CREATININE URINE RANDOM 73.4 mg/dL
[2024-04-20] MEDS: ACETAMINOPHEN 325MG TABLET PO PRN (16:52)
[2024-04-21] VITALS (10 sets, daily range): BP systolic 100–151; BP diastolic 60–78; PULSE 79–106; RESP 18–27; TEMP 98–98.5; O2SAT 99–100
[2024-04-21 06:56] LABS: BASOPHILS % 0.5 % (0.0-2.0); HEMATOCRIT. 34.7 % (36.0-48.0); HEMOGLOBIN. 11.4 g/dL (12.0-16.0); LYMPHOCYTES % 11.7 % (20.0-50.0); MEAN CORPUSCULAR HEMOGLOBIN 30.3 pg (28.0-32.0); MEAN CORPUSCULAR HGB CONC 32.7 g/dL (31.0-37.0); MEAN CORPUSCULAR VOLUME 92.5 fL (81.0-99.0); MEAN PLATELET VOLUME 8.4 fl (7.4-10.4); MONOCYTES % 9.6 % (2.0-8.0); NEUTROPHILS % 76.2 % (40.0-76.0); PLATELET 335 x1000/uL (130-400); RED BLOOD CELL COUNT 3.76 mill/uL (4.2-5.4); RED CELL DISTRIBUTION WIDTH 13.7 % (11.6-14.6)
[2024-04-21 07:04] LABS: CHLORIDE 109 mEq/L (98-107); POTASSIUM 4.1 mEq/L (3.5-5.1); SODIUM 141 mEq/L (136-145)
[2024-04-21 07:05] LABS: CALCIUM 9.7 mg/dL (8.7-10.4); CARBON DIOXIDE 26 mEq/L (21-32)
[2024-04-21 07:10] LABS: CREATININE 0.8 mg/dL (0.6-1.0); GLUCOSE 146 mg/dL (70-105); UREA NITROGEN BLOOD 19 mg/dL (9-23)
[2024-04-21] MEDS: SODIUM CHLORIDE 0.9% 1,000 ML IV SCH (16:55)
[2024-04-22] VITALS (10 sets, daily range): BP systolic 126–154; BP diastolic 50–66; PULSE 76–111; RESP 16–30; TEMP 97.6–98.3; O2SAT 100
[2024-04-22 06:37] LABS: BASOPHILS % 0.5 % (0.0-2.0); EOSINOPHILS % 1.2 % (0.0-5.0); HEMATOCRIT. 31.5 % (36.0-48.0); HEMOGLOBIN. 10.3 g/dL (12.0-16.0); MEAN CORPUSCULAR HEMOGLOBIN 30.2 pg (28.0-32.0); MEAN CORPUSCULAR HGB CONC 32.8 g/dL (31.0-37.0); MEAN CORPUSCULAR VOLUME 92.2 fL (81.0-99.0); MEAN PLATELET VOLUME 8.2 fl (7.4-10.4); MONOCYTES % 7.5 % (2.0-8.0); NEUTROPHILS % 79.8 % (40.0-76.0); PLATELET 327 x1000/uL (130-400); RED BLOOD CELL COUNT 3.42 mill/uL (4.2-5.4); RED CELL DISTRIBUTION WIDTH 13.6 % (11.6-14.6)
[2024-04-22 06:49] LABS: CHLORIDE 113 mEq/L (98-107); POTASSIUM 4.2 mEq/L (3.5-5.1); SODIUM 143 mEq/L (136-145)
[2024-04-22 06:50] LABS: CARBON DIOXIDE 24 mEq/L (21-32)
[2024-04-22 06:51] LABS: CALCIUM 9.5 mg/dL (8.7-10.4)
[2024-04-22 06:55] LABS: CREATININE 0.7 mg/dL (0.6-1.0); GLUCOSE 119 mg/dL (70-105); UREA NITROGEN BLOOD 14 mg/dL (9-23)
[2024-04-23] VITALS (8 sets, daily range): BP systolic 125–155; BP diastolic 53–73; PULSE 84–103; RESP 13–23; TEMP 98–98.3; O2SAT 100
[2024-04-23] MEDS: IPRATROPIUM/ALBUTEROL 0.5-3(2.5)MG/3ML NEB HHN PRN (12:00)
== END 2024-04-23 20:47 | DRG 233 ==
LOC: ER 13:34 → EDBEDREQ 17:21 → EDBEDREQSVC 17:21 → EDBEDREQTM 17:21 → 5EST 21:42 → CVICU 04-03 12:45 → 3WST 04-19 17:40
PROVIDERS: ADMIT Internal Medicine; ATTEND Internal Medicine
PROC: 4A023N7 Measurement of Cardiac Sampling and Pressure, Left Heart, Percutaneous Approach (ICD-10-PCS; principal; 2024-04-03)
PROC: B2111ZZ Fluoroscopy of Multiple Coronary Arteries using Low Osmolar Contrast (ICD-10-PCS; 2024-04-03)
PROC: 02HV33Z Insertion of Infusion Device into Superior Vena Cava, Percutaneous Approach (ICD-10-PCS; 2024-04-03)
PROC: B548ZZA Ultrasonography of Superior Vena Cava, Guidance (ICD-10-PCS; 2024-04-03)
PROC: 5A1935Z Respiratory Ventilation, Less than 24 Consecutive Hours (ICD-10-PCS; 2024-04-12)
PROC: 0BH17EZ Insertion of Endotracheal Airway into Trachea, Via Natural or Artificial Opening (ICD-10-PCS; 2024-04-12)
PROC: 021009W Bypass Coronary Artery, One Artery from Aorta with Autologous Venous Tissue, Open Approach (ICD-10-PCS; 2024-04-12)
PROC: 04QK0ZZ Repair Right Femoral Artery, Open Approach (ICD-10-PCS; 2024-04-12)
PROC: 06BQ4ZZ Excision of Left Saphenous Vein, Percutaneous Endoscopic Approach (ICD-10-PCS; 2024-04-12)
PROC: 0W9B30Z Drainage of Left Pleural Cavity with Drainage Device, Percutaneous Approach (ICD-10-PCS; 2024-04-12)
PROC: 02100Z9 Bypass Coronary Artery, One Artery from Left Internal Mammary, Open Approach (ICD-10-PCS; 2024-04-12)
PROC: 5A1221Z Performance of Cardiac Output, Continuous (ICD-10-PCS; 2024-04-12)
PROC: B24BZZ4 Ultrasonography of Heart with Aorta, Transesophageal (ICD-10-PCS; 2024-04-12)
PROC: 30233N1 Transfusion of Nonautologous Red Blood Cells into Peripheral Vein, Percutaneous Approach (ICD-10-PCS; 2024-04-12)
PROC: 0B9J8ZX Drainage of Left Lower Lung Lobe, Via Natural or Artificial Opening Endoscopic, Diagnostic (ICD-10-PCS; 2024-04-17)
PROC: 5A0935A Assistance with Respiratory Ventilation, Less than 24 Consecutive Hours, High Flow/Velocity Cannula (ICD-10-PCS; 2024-04-18)
DX: I21.4 Non-ST elevation (NSTEMI) myocardial infarction (principal); J18.9 Pneumonia, unspecified organism; J96.01 Acute respiratory failure with hypoxia; J44.0 Chronic obstructive pulmonary disease with (acute) lower respiratory infection; J44.1 Chronic obstructive pulmonary disease with (acute) exacerbation; I13.0 Hypertensive heart and chronic kidney disease with heart failure and stage 1 through stage 4 chronic kidney disease, or unspecified chronic kidney disease; I16.0 Hypertensive urgency; I25.10 Atherosclerotic heart disease of native coronary artery without angina pectoris; I65.21 Occlusion and stenosis of right carotid artery; I50.9 Heart failure, unspecified; D64.9 Anemia, unspecified; Z20.822 Contact with and (suspected) exposure to COVID-19; I35.1 Nonrheumatic aortic (valve) insufficiency; M75.02 Adhesive capsulitis of left shoulder; R55 Syncope and collapse; E11.22 Type 2 diabetes mellitus with diabetic chronic kidney disease; E11.65 Type 2 diabetes mellitus with hyperglycemia; E78.5 Hyperlipidemia, unspecified; E87.5 Hyperkalemia; N18.1 Chronic kidney disease, stage 1; Z53.9 Procedure and treatment not carried out, unspecified reason; Z79.82 Long term (current) use of aspirin; Z79.899 Other long term (current) drug therapy; Z87.891 Personal history of nicotine dependence
CPT/HCPCS: 36415; 36573; 36600; 71045; 71275; 76604; 76770; 80048; 80053; 80061; 80305; 81003; 82375; 82550; 82553; 82570; 82805; 82962; 83036; 83605; 83735; 83880; 84100; 84132; 84145; 84156; 84484; 85025; 85027; 85347; 85379; 85384; 86850; 86900; 86920; 87070; 87426; 93005; 93306; 93308; 93458; 93880; 93970; 94003; 94640; 94660; 94667; 97110; 97116; 97162; 97167; 97530; 97535; 99291; C1725; C1729; C1751; C1758; C1769; C1887; C1893; C9113; J0360; J0690; J0696; J1200; J1265; J1644; J1650; J1815; J1940; J1956; J2250; J2270; J2370; J2405; J2440; J2704; J2720; J2765; J3010; J3475; J3480; J3490; J7030; J7050; J7060; J7608; J7626; L3908; P9016; P9041; P9047; Q9957; Q9967